=== PATIENT | female | born 1945 | race African-American/Black ===

== ENCOUNTER 2024-04-06 10:28 | Outpatient (REF) | payer OTHER, SELFPAY | END 2024-04-06 10:29 | disposition home or self-care (01) | LOC: HO.HOSX 10:28 | PROVIDERS: PCP Physician Assistant Medical | DX: M79.641 Pain in right hand (principal); M25.541 Pain in joints of right hand | CPT/HCPCS: 73130; 99202 ==

== ENCOUNTER 2024-04-06 10:28 | Outpatient (AMB) | payer OTHER, SELFPAY ==
--- NOTE | 2024-04-06 10:34 | A.OFFVIS_ITS ---
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 Patient states she has pain when moving her thumb. Pt states she also gets locking in her thumb. She has had injections many years ago and states the pain just started coming back. 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 of the IP joint of the right thumb, ongoing for approximately 2 months. The patient states that she did have basal joint injections into the right thumb years ago, and that this was very effective in relieving her pain, but she states that her pain now is different than it was before. The patient states that when she flexes the IP joint of the right thumb, it clicks, and then she needs to manually bring it back into extension with the other hand. Patient denies any numbness or tingling right hand. No other acute complaints or concerns this time . Review of Systems Const All systems reviewed & are unremarkable except as noted in HPI and below Physical Exam Extrem Other: Patient is alert, oriented, and in no acute distress. Neuro: Normal sensation of the tips of all digits of the right hand at this time Vascular: Cap refill brisk Pain: Patient reports pain associated with clicking of the IP joint of the right thumb with flexion and extension No tenderness to palpation of the IP joint, MCP joint, basal joint, or elsewhere right thumb No tenderness to palpation of the A1 renae ROM: Patient is able to make closed fist and extend all digits of the right hand However, when the patient flexes the IP joint, it clicks and locks in a flexed position and must be manually released However, there is no palpable locking and catching at the A1 renae Skin: No lacerations or abrasions. General: No ecchymosis, erythema, or evidence of infection. Psych: Appears grossly normal Affect normal Attitude cooperative Results Reviewed Results Reviewed: X-rays obtained in the office today and independently reviewed by me, Braxton Solis PA-C, demonstrate old, well corticated fracture of the distal phalanx of the right thumb with significant articular surface involvement. No acute fracture or acute bony abnormality noted Assessment & Plan Assessment & Plan (1) Pain in thumb joint with movement of right hand: Code(s): M25.541 - Pain in joints of right hand Category: Medical Plan 1. Old fracture of right thumb with associated locking and catching of IP joint I educated the patient that it was likely not a trigger finger that is causing her locking and catching, but I suspect that she may have chronic instability in the IP joint of the right thumb and it was chronically subluxating which is causing his locking and catching Patient denies knowledge of any prior significant fracture or injury to the right thumb, but states that this is possible Patient states understanding of this Patient is informed that she should have a follow-up appointment with Dr. Johns to discuss if any further treatment options be indicated for this Patient was amenable to this plan Patient will follow-up in 3-[address] Johns for repeat assessment and discussion of treatment options at time, sooner with any acute concerns Orders: Orders XR hand RT min 3V Today M79.641 - Pain in right hand Coding Level of Care Code New Pt Level 3 (32760) Diagnoses Pain in thumb joint with movement of right hand M25.541
== END 2024-04-06 11:11 | disposition home or self-care (01) ==
PROVIDERS: PCP Physician Assistant Medical
DX: M25.541 Pain in joints of right hand (principal)
CPT/HCPCS: 99203

== ENCOUNTER 2024-06-07 10:33 | Outpatient (AMB) | payer OTHER, SELFPAY ==
--- NOTE | 2024-06-07 11:01 | MHC.OFFVIS ---
Intake Visit Reasons: OV- Right thumb IP instability Intake Note: Brianna is a 78 year old right hand dominant female who presents to the office today for right thumb IP joint pain. Patient last seen with Tarik Limon who wanted patient to be re-evaluated by Dr Johns. Patient reports she is having pain when bending her thumb at her IP joint. States it locks and is painful. Brace that was given (comfort Cool brace) is making her pain worse. Hx of DM. Allergies losartan Allergy (Intermediate, Verified 06/07/24 11:06) Rash HPI HPI OV- Right thumb IP instability: Details: The patient is a 79-year-old woman who complains of pain in the IP joint of her right thumb. She also has pain over the A1 renae of her right thumb. She reports having locking and catching at the IP joint that is painful and bothersome. Physical Exam Extrem Other: The patient was alert oriented and in no acute distress She is tender over the right thumb A1 renae It took significant encouragement to get her to actively flex and extend her thumb at the IP joint, and she would only do it to about 20 degrees, because she is worried about it locking painfully. She can make a fist with her other digits and bring them into extension without any problems. Cap refill brisk sensation intact Radiographs: Three views of her right hand from 04/06/2024 were reviewed by me in clinic today show no fracture or dislocation. Only very mild arthritic changes at the IP joint. No old fracture, but rather a prominent volar sesamoid at the IP joint. Office Procedures AMB Fracture Care Details: No fracture, injection Fracture Billing Code: Fracture Billing Code Assessment & Plan Assessment & Plan (1) Trigger finger of right thumb: Code(s): M65.311 - Trigger thumb, right thumb Category: Medical Plan Assessment and plan: 1. Right trigger thumb This is the most likely diagnosis given her tenderness to palpation at the A1 renae and history of locking and catching at the IP joint I educated her about this condition We discussed operative and non operative treatment options and I am recommending an injection. She would like to proceed with a steroid injection for her right trigger thumb Injection #1: The risks and benefits of a steroid injection including but not limited to risk of damage to blood vessels, nerves, tendons, infection, skin bleaching, failure to improve symptoms, increased pain, and possible need for further injections or other intervention were discussed with the patient and the patient wishes to proceed with the steroid injection. Once consent was obtained, I sterilely prepped the area over the A1 renae of the flexor tendon sheath of the right thumb. I then injected the flexor tendon sheath with a combination of 1 mL of dexamethasone (4mg/ml), and 1% lidocaine. The patient tolerated the procedure well with no complications. I saw definite locking and catching with active flexion and extension after the injection. This therefore is indeed a right trigger thumb If the patient continues to have locking and catching 4-6 weeks following this injection, they may call to schedule appointment to be seen for possible A1 renae release. Follow up p.r.n. Coding Level of Care Code Est Pt Level 4 (67673) Diagnoses Trigger finger of right thumb M65.311 CPT Codes Fracture Care - Fracture Billing Code: Fracture Billing Code ([id number])
== END 2024-06-07 11:45 | disposition home or self-care (01) ==
PROVIDERS: PCP Physician Assistant Medical; Visit Provider Orthopaedic Surgery
DX: M65.311 Trigger thumb, right thumb (principal)
CPT/HCPCS: 20550; 99214

== ENCOUNTER → 2024-06-07 10:33 | Outpatient (BNVA) | payer OTHER, SELFPAY | PROVIDERS: PCP Physician Assistant Medical; Visit Provider Orthopaedic Surgery | DX: M65.311 Trigger thumb, right thumb (principal) | CPT/HCPCS: 20550; 99212; J1100; J2003 ==

== ENCOUNTER 2024-08-10 11:32 | Outpatient (AMB) | payer OTHER, SELFPAY ==
--- NOTE | 2024-08-10 12:04 | A.OFFVIS_ITS ---
Vital Signs 08/10/24 12:08 Height 5 ft Weight 161 lb BMI 31.4 Intake Visit Reasons: OV- Right trigger thumb, s/p inj 06/07/24 Intake Note: Brianna 79 yr old female presents today s/p right thumb trigger injection form 06/07/24. States injection did not help and would like to discuss surgical intervention. Allergies losartan Allergy (Intermediate, Verified 08/10/24 12:07) Rash HPI HPI OV- Right trigger thumb, s/p inj 06/07/24: Details: Brianna is a 79 year old right hand dominant Diabetic woman who returns to discuss her right trigger thumb, S/P injection on 06/07/24. She says the injection did not help her and she continues to have painful locking & catching of her thumb. She is a Diabetic, she says her most recent HgA1c was below 8.0% She is supposed to see her Diabetes doctor on 08/18/24. [facility] Social History (Updated 08/10/24 @ 12:08 by CELINA Hawk) Current occupational status: unemployed and retired Current occupation: rt hand Review of Systems Const All systems reviewed & are unremarkable except as noted in HPI and below Physical Exam Vital Signs: BMI result Body Mass Index 31.4 Const General: no acute distress and alert Orientation/consciousness: patient oriented x3 Neuro General: patient oriented x3 Extrem Other: Evaluation of Right Upper Extremity: The patient is alert, oriented, and in no acute distress Neuro: Median, Ulnar, Radial nerves motor and sensory intact and sensation is normal to the tips of all digits Vascular: Cap refill brisk ROM: She can make a fist and extend all her digits She is hesitant to bend her thumb today in clinic due to painful locking, and refuses to flex it beyond 20 degrees Tender over the thumb A1 renae Psych Appearance: grossly normal Affect: normal affect Attitude: cooperative Assessment & Plan Assessment & Plan (1) Trigger finger of right thumb: Code(s): M65.311 - Trigger thumb, right thumb Category: Medical Plan Assessment and plan: 1. Right trigger thumb, S/P injection Date of injection: 06/07/24 I educated her about this condition I discussed operative and non-operative treatment options The patient would like to proceed with surgery The risks and benefits of operative treatment were discussed with the patient and the patient wishes to proceed with surgery. These risks include, but are not limited to risk of damage to blood vessels, nerves, tendons, infection, recurrence, incomplete relief of preoperative symptoms, persistent pain, possible need for further surgery and the risks associated with regional blocks and anesthesia. The plan is to take the patient to the operating room sometime in the next few weeks for the following procedures: 1. Right trigger thumb release, under local All of the preoperative paperwork including the consent was reviewed today. All the patient's questions were answered. The patient understands that they will be contacted by our production scheduler soon to schedule this procedure She denies blood thinners, asthma, heart, lung, kidney issues She is a Diabetic and says her most recent HgA1c was below 8.0% .They will need an updated HgA1c that is <8.1% in order to proceed with surgery, and they expressed understanding Scribed for Laura Johns MD by Derek Hester, outside medical sales representative, on 08/10/24 at 12:10 PM, EST. Coding Level of Care Code Est Pt Level 4 (36168) Diagnoses Trigger finger of right thumb M65.311
[2024-08-10 12:08] VITALS: BMI 31.4
--- OUTSIDE RECORDS SUMMARY | 2024-08-10 14:29 | XMS_ITS | Clinical Summary ---
Author Organization [facility] Address [address] [place] [phone] Phone Care Team Providers Care Mining Engineer Name Role Phone Merlene Huntley PA-C Primary Care Provider [phone] Allergies Active Allergy Reactions Criticality Noted Date Comments Dapagliflozin 08/12/2023 Rash, face swelling Medications insulin aspart (NovoLOG FLEXPEN) 100 UNIT/ML injection Active insulin degludec (Tresiba FlexTouch) 100 UNIT/ML injection Active atorvastatin (LIPITOR) 40 MG tablet Take 40 mg by mouth 1 (one) time each day Active Calcium Carb-Cholecalci ferol 600-10 MG-MCG tablet Take 1 tablet by mouth in the morning and 1 tablet in the evening. 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 Impression: Stable CKD: Avoid nephrotoxins. Continue losartan 50 mg nightly. Blood work ordered. Emphasis on goo BP control and sugar control. Hypertensive disorder 01/07/2013 Acute nontraumatic kidney injury 09/12/2008 Goiter 09/12/2008 Resolved Problems Problem Noted Date Diagnosed Date Resolved Date Multinodular goiter 12/10/2018 09/05/19 Overview (09/04/2020): Ct abdomen/pelvis 03/2018-heterogeneous left thyroid gland, not significantly changed from 09/10/2008, likely secondary to multinodular goiter. Nodule of lung 12/10/2018 09/04/2020 Overview (09/04/2020): Ct abdomen pelvis- 03/2018: lateral left lobe 3 mm nodule, if low risk for malignancy, no routine follow-up. If high risk, optional CT at 12 months. If unchanged, no further follow-up is needed per guidelines. Shoulder pain 03/20/2015 09/04/2020 Overview (09/04/2020): [facility] Diagnostic Imaging Department [address] [place] [address] Patient: KAVITHABRIANNA /Age/Sex: 1945 - 69 - F Unit#: [id number] Location/Status: SPDIGEN/REG CLI Mnemonic/Ordering Site: SHOULDRT/SPDI Ordering Physician: HILDA SIMPSON MD CR Shoulder RT Min 2 View - 03/21/151946 HISTORY: The patient is a 69-year-old female with right shoulder pain 2 months following a fall. FINDINGS: AP, right posterior oblique, and transscapular views of the right shoulder demonstrate no fracture, dislocation, arthritic change, or other bony abnormality. No soft tissue abnormality is seen. IMPRESSION: Normal examination. Retinopathy due to type 2 diabetes mellitus 01/07/2013 09/04/2020 H/O: hysterectomy 01/07/2013 09/04/2020 Overview (09/04/2020): Per chart review, patient does not have a uterus or ovaries. History of esophagitis 01/07/201309/04 Hyperlipidemia 01/07/2013 09/04/2020 Leiomyoma 01/07/2013 09/04/2020 Type 2 diabetes mellitus 01/07/2013 Encounters Date Type Department Care Team Description 07/07/2024 1:00 PM EST [facility] [address] [phone] Kuldeep Rey MD Stage 3 chronic kidney disease, not otherwise specified (HCC) (Primary Dx); Hypertension; Simple renal cyst from Last 3 Months Immunizations Name Administration Dates Next Due Influenza TIV (IM) 04/25/2011 Pneumococcal Conjugate 13-Valent 12/10/2018 Pneumococcal Polysaccharide 01/16/2016 Shingrix 04/04/2021,07/03/2020 Tdap 01/16/2016 Zoster 07/03/2020 Family History Medical History Relation Comments Kidney disease Child Cancer Mother Hypertension Mother Diabetes Sibling 1 Stroke Sibling 2 Hypertension Sibling 3 Relation Status Comments Child Father Mother Sibling 1 Sibling 2 Sibling 3 Social History Tobacco Use Types Packs/Day Years Used Date Smoking Tobacco: Never Smokeless Tobacco: Never Tobacco Cessation:Counseling Given: Not Answered Alcohol Use Standard Drinks/Week Comments No 0 (1 standard drink = 0.6 oz pur e alcohol) Comments Unknown Sex and Gender Information Value Date Recorded Sex Assigned at Not on file Legal Sex Female 5:06 PM EST Gender Identity Not on file Sexual Orientation Not on file Last Filed Vital Signs Vital Sign Reading Time Taken Comments Blood Pressure 152/60 07/07/2024 1:13 PM EST Pulse 58 07/07/2024 1:13 PM EST Temperature - - Respiratory Rate - - Oxygen Saturation 100% 08/12/2023 7:43 AM EST Inhaled Oxygen Concentration - - Weight 74.4 kg (164 lb) 07/07/2024 1:13 PM EST Height 157.5 cm (5' 2 ) 08/12/2023 7:43 AM EST Body Mass Index 30 08/12/2023 7:43 AM EST Plan of Treatment Upcoming Encounters Date Type Department Care Team (Late st Contact Info) Description 01/16/2025 1:15 PM EDT Office Visit [facility] [address] [phone] Kuldeep Rye MD [address] [address] Health Maintenance Due Date Last Done Comments Diabetes: Ophthalmology Exam 07/12/2020 Diabetes: Pedal Pulse Checked 07/12/2020 Diabetes: Sensory Foot Exam 07/12/2020 Diabetes: Visual Foot Exam 07/12/2020 Influenza Vaccine (#1) 2024 04/25/2011 Diabetes: Hemoglobin A1C 06/16/2024 024, 12/08/2023, 07/22/2023, Additional history exists Pneumococcal Vaccine: 65+ Years Completed 12/10/2018, 01/16/2016 Hepatitis B Vaccine Aged Out No longe r eligible based on patient's age to complete this topic Procedures Procedure Name Priority Date/Time Associated Diagnosis Comments PTH, INTACT Routine 06/28/2024 10:35 AM EST VITAMIN D 25 HYDROXY Routine 06/28/2024 10:35 AM EST URINE ALBUMIN / CREATININE RATIO Routine 06/28/2024 10:35 AM EST RENAL FUNCTION PANEL Routine 06/28/2024 10:35 AM EST from Last 3 Months Results * (ABNORMAL) Urine Albumin / Creatinine Ratio (06/28/2024 10:35 AM EST) Creatinine, Ur 91.6 Not Estab. mg/dL [facility] Albumin, Urine 47.5 Not Estab. ug/mL [facility] Albumin/Creatin ine Ratio 52(H) 0 - 29 mg/g creat [facility] Comment: ? Normal: ?0 - ??29 ? Moderately increased: 30 - 300 ? Severely increased: ? >300 06/28/2024 10:3 5 AM EST 06/28/2024 us Kuldeep Rey MD LAB URINE ORDERABLES Final Resul t [facility] [address] [place] [address] * (ABNORMAL) Vitamin D 25 Hydroxy (06/28/2024 10:35 AM EST) Vitamin D, 25-OH, Total 24.5(L) 30.0 - 100.0 ng/mL [facility] Comment: Vitamin D deficiency has been defined by the [place] of Medicine and an Endocrine Society practice guideline as a level of serum 25-OH vitamin D less than 20 ng/mL (1,2). The Endocrine Society went on to further define vitamin D insufficiency as a level between 21 and 29 ng/mL (2). 1. IOM ([place] of [employer]). 2010. Dietary reference ?? intakes for calcium and D. [place]: The ?? National AcademCollegeJobConnect Press. 2. Hipolito LAND, Tomas JOHNSON, Kim-Anupam NAVARRETE, et al. ?? Evaluation, treatment, and prevention of vitamin D ?? deficiency: an Endocrine Society clinical practice ?? guideline. JCEM. 2010; 96(7):1911-30. 06/28/2024 10:3 5 AM EST 06/28/2024 us Kuldeep Rey MD LAB BLOOD ORDERABLES Final Resul t Performing Organization Address City/[facility]/ZIP Co de Phone Number [facility] [address] [place] [phone] * PTH, Intact (06/28/2024 10:35 AM EST) PTH 64 15 - 65 pg/mL [facility] 06/28/2024 10:3 5 AM EST 06/28/2024 us Kuldeep Rey MD LAB BLOOD ORDERABLES Final Resul t Performing Organization Address City/[facility] [[email or web address]] Co de Phone Number [facility] [address] [place] [address] * (ABNORMAL) Renal Function Panel (06/28/2024 10:35 AM EST) Glucose 135(H) 70 - 99 mg/dL [facility] BUN 26 8 - 27 mg/dL [facility] Creatinine 1.55(H) 0.57 - 1.00 mg/dL [facility] eGFR CKD-EPI CR 2020 34(L) >59 mL/min/1.7 3 [facility] BUN/Creatinine Ratio 17 12 - 28 [facility] Sodium 138 134 - 144 mmol/L [facility] Potassium 5.2 3.5 - 5.2 mmol/L [facility] Chloride 104 96 - 106 mmol/L [facility] Bicarbonate (CO2) 21 20 - 29 mmol/L [facility] Calcium 9.4 8.7 - 10.3 mg/dL [facility] Albumin 3.9 3.8 - 4.8 g/dL [facility] Phosphorus 3.5 3.0 - 4.3 mg/dL [facility] 06/28/2024 10:3 5 AM EST 06/28/2024 Kuldeep Rey MD LAB BLOOD ORDERABLES Final Resul t [facility] [address] [place] [address] from Last 3 Months Insurance * Guarantor: Brianna Chapman Account Type Relation to Patient Date of Phone Billing Address Personal/Family Self [address] ([id number]) [place] [phone] [facility] ([id number]) [place] [phone] Care Teams Mining Engineer Relationship Specialty Start Date End Date Merlene Huntley PA-C [address] [place] [address] PCP - General Physician Senior Internal Auditor 04/08/21
--- OUTSIDE RECORDS SUMMARY | 2024-08-10 14:29 | XMS_ITS | Clinical Summary ---
Author Organization [facility] Address [address] [place] [address] Care Team Providers Care Pest Technician Name Role Phone Merlene Huntley PA-C Primary Care Provider [phone] Source Comments PLEASE NOTE, if this patient is a minor, it may be UNLAWFUL to discuss sensitive information that is contained in these records (such as FAMILY PLANNING, MENTAL HEALTH or SUBSTANCE ABUSE) with the minor patient's parent or other person without the patient's specific authorization.[facility] Allergies Active Allergy Reactions Criticality Noted Date Comments Dapagliflozin 08/12/2023 Rash, face swelling Metformin Other (See Comments) 03/16/2024 eGFR 37 mL/min/1.73m2 as of 07/22/23 Medications lancets (FREESTYLE LANCETS) 28 gauge Test blood sugars TID w/meals DX: E11.65 FREESTYLE LANCETS 100 Each 11 02/24/20 18 Active acetaminophen (TYLENOL) 500 mg tablet Take 1 Tablet by mouth Active blood pressure test kit-mediumIndicati ons:Essential hypertension DX: htn FROYLAN: 99 1 Kit 10/30/19 23 Active MISCELLANEOUS MEDICAL SUPPLY MISCIndications:Co ntrolled type 2 diabetes mellitus without complication, with long-term current use of insulin ([facility]),[facility] hypertension by miscellaneous route once daily as needed Use as needed to monitor weight DX: DM II, HTN FROYLAN:99 Supply: scale 1 Each 10/30/19 23 Active flash glucose scanning reader (WorldVizSTYLE THEODORE 2 READER) [facility] Use to scan sensor to monitor blood sugar frequently (at least 4 times daily) 1 Each 04/08/20 23 Active blood sugar diagnostic (FREESTYLE PRECISION ANDRE STRIPS) stripsIndications: Type 2 diabetes mellitus with hyperglycemia, with long-term current use of insulin ([facility]) as needed for high blood sugar (Use with Theodore when prompted for hyperglycemia or hypoglycemia up to 2 times daily (FS Precision Andre Strips)) 50 Each 11 12/02/19 24 Active NOVOLOG FLEXPEN U-100 INSULIN 100 unit/mL (3 mL)Indications: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, macular edema presence unspecified, unspecified retinopathy severity ([facility]) INJECT UNDER THE SKIN DIRECTED 2-14 UNITS THREE TIMES DAILY WITH MEALS; MAX 42U/DAY 15 mL 03/09/20 24 Active glucose 4 gram chewable tabletIndications: Type 2 diabetes mellitus with stage 3b chronic kidney disease, with long-term current use of insulin ([facility]) Place 4 Tablets into mouth, chew and swallow as needed for low blood sugar (Less than 70 mg/dL) 30 Tablet 5 03/16/20 24 Active flash glucose sensor (FREESTYLE THEODORE 2 SENSOR) kitIndications:Typ e 2 diabetes mellitus with stage 3b chronic kidney disease, with long-term current use of insulin ([facility]) Combine applicator and sensor to apply to back of arm. Replace after 14 days. 2 Kit 03/16/20 24 Active insulin degludec (TRESIBA FLEXTOUCH U-100) 100 unit/mL (3 mL)Indications:Typ e 2 diabetes mellitus with stage 3b chronic kidney disease, with long-term current use of insulin ([facility]) Inject 12 Units into the skin nightly at bedtime 15 mL 04/14/20 24 Active losartan (COZAAR) 100 mg tabletIndications: Type 2 diabetes mellitus with stage 3b chronic kidney disease, with long-term current use of insulin ([facility]),[facility] l hypertension Take 1 Tablet by mouth every morning For blood pressure. 90 Tablet 1 04/14/20 24 Active pen needle, diabetic (BD ULTRA-FINE SHORT PEN NEEDLE) 31 gauge x 10/28 ndleIndications:Ty pe 2 diabetes mellitus with stage 3b chronic kidney disease, with long-term current use of insulin ([facility]) Use to inject insulin up to 4 times daily. 200 Each 05/16/20 24 Active atorvastatin (LIPITOR) 40 mg tabletIndications: Type 2 diabetes mellitus with stage 3b chronic kidney disease, with long-term current use of insulin ([facility]),[facility] l hypertension,Hyper lipidemia with target low density lipoprotein (LDL) cholesterol less than 100 mg/dL Take 1 Tablet by mouth once daily 90 Tablet 1 06/03/20 24 Active calcium carbonate-vit D3-min 600 mg-10 mcg (400 unit) tabletIndications: Medication refill,Brittle nails Take 1 Tablet by mouth 2 (two) times daily 180 Tablet 1 06/03/20 24 Active Active Problems Problem Noted Date Diagnosed Date Trachyonychia 07/22/2023 Hyperkalemia 02/13/2022 Non-cardiac chest pain 10/22/2021 Mammogram declined 12/10/2018 Multinodular goiter 12/10/2018 Overview (12/10/2018): Ct abdomen/pelvis 03/2018-heterogeneous left thyroid gland, not significantly changed from 09/10/2008, likely secondary to multinodular goiter. Lung nodule < 6cm on CT 12/10/2018 Overview (12/10/2018): Ct abdomen pelvis- 03/2018: lateral left lobe 3 mm nodule, if low risk for malignancy, no routine follow-up. If high risk, optional CT at 12 months. If unchanged, no further follow-up is needed per guidelines. H/O: hysterectomy 05/30/2015 Overview (05/30/2015): Per chart review, patient does not have a uterus or ovaries. Shoulder pain, right 03/20/2015 Overview (03/29/2015): [facility] Diagnostic Imaging Department [address] [place] [id number] Patient: FRANK CHAPMAN./Age/Sex: 1945 - 69 - F Unit#: [id number] Location/Status: SPDIGEN/REG CLI Mnemonic/Ordering Site: [facility] Ordering [...] tissue abnormality is seen. IMPRESSION: Normal examination. Diabetic retinopathy associa jeremie with type 2 diabetes mellitus ([facility]) 01/07/2013 Type 2 diabetes mellitus wit h stage 3b chronic kidney disease, with long-term current use of insulin ([facility]) 01/07/2013 Overview (06/30/2024): DM dx: >40years Glucometer: Freestyle Theodore 2 Current Diabetes RX: Tresiba U-100 - inject 12 units at bedtime Novolog Flexpen - inject 2-14 units three times daily before meals (max 42 units/day) Dapagliflozin - allergy list, counseled pt to consult nephrology regarding SLGT- 2 inhibitor use ARABELLA-I/ARB: Losartan 100 mg daily Statin: Atorvastatin 40 mg daily Pneumococcal vaccine: Based on shared clinical decision-making, decide whether to administer one dose of PCV20 or PCV21 at least 5 years after the last pneumococcal vaccine dose. Regardless of wheter PCV20 or PCV21 is administered, their pneumococcal vaccinations are complete. Received: PCV13 (12/10/18) PPSV23 (01/16/16) Diabetes foot exam: 12/08/23 per Diabetes retinal exam: 09/23/23 at [facility] Bilateral pinguecula Nuclear sclerotic cataract. Pt does not drive and does not want cataract surgery . No diabetic retinopathy, no macular edema, no HTN retinopathy. Hyperopia. Astigmatism. Presbyopia F/U 1 year. Hyperlipidemia LDL goal <100 01/07/2013 H/O esophagitis 01/07/2013 Chronic kidney disease, stage 3 ([facility]) 2012 Overview (04/03/2015): Pt seen Dr Lara on 03/20/2015 at [facility]. Impression: Stable CKD: Avoid nephrotoxins. Continue losartan 50 mg nightly. Blood work ordered. Emphasis on goo BP control and sugar control. S/P hysterectomy 01/07/2013 Fibroids 01/07/2013 Stage 3b chronic kidney disease ([facility]) 2012 Overview (06/30/2024): Follow-up 07/07/24 at [facility] - Dr. Kuldeep Rey 01/04/24 [facility] - Dr. Kuldeep Rey 1. Stage 3b chronic kidney disease (HCC) 2. Hypertension 3. Simple renal cyst Kidney function is close to baseline. Baseline Scr is ~ 1.4 mg/dl Renal US on 05/30 was normal except for a left simple renal cyst. (R 9.8 cm and L 9.6 cm). 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 She is on losartan. She has a simple renal cyst and no further work up is indicated. She would benefit from SGTL2i but did not tolerate it previously. Essential hypertension 01/07/2013 Goiter 09/12/2008 Acute renal failure ([facility]) 09/12/2008 Resolved Problems Problem Noted Date Diagnosed Date Resolved Date Uses self-applied continuous glucose monitoring device 04/21/2023 03/16/2024 End stage renal disease ([facility]) 09/04/2020 03/16/2024 HTN (hypertension) 01/07/2013 Encounters Date Type Department Care Team Description 08/09/2024 10:00 AM EST Office Visit [address] [phone] Mariela Lucas RN Type 2 diabetes mellitus with stage 3b chronic kidney disease, with long-term current use of insulin (HCC-CMS) (Primary Dx) 06/30/2024 2:00 PM EST Office Visit [address] [phone] Hammad Camarillo, Michael Type 2 diabetes mellitus with stage 3b chronic kidney disease, with long-term current use of insulin (HCC-CMS) (Primary Dx); Essential hypertension; Hyperlipidemia LDL goal <100; Stage 3b chronic kidney disease ([facility]CC-CMS) 06/30/2024 Travel 06/03/2024 10:00 AM EST Office Visit [address] [phone] Merlene Huntley PA-C Annual physical exam (Primary Dx); Type 2 diabetes mellitus with stage 3b chronic kidney disease, with long-term current use of insulin (HCC-CMS); Essential hypertension; Hyperlipidemia with target low density lipoprotein (LDL) cholesterol less than 100 mg/dL; Medication refill; Brittle nails 06/03/2024 9:30 AM EST Interim Notes [facility] [address] [place] [phone] 06/03/2024 Travel 05/31/2024 11:20 AM EST Interim Notes [facility] [address] [place] [phone] 05/31/2024 10:40 AM EST Office Visit [address] [phone] Mariela Lucas RN Type 2 diabetes mellitus with stage 3b chronic kidney disease, with long-term current use of insulin (HCC-CMS) (Primary Dx) 05/31/2024 Travel from Last 3 Months Immunizations Name Administration Dates Next Due INFLUENZA, SEASONAL, INJECTABLE 04/25/2011,04/25 PNEUMOCOCCAL CONJUGATE PCV 13 12/10/2018 PNEUMOCOCCAL POLYSACCHARIDE PPV23 01/16/2016 TDAP 01/16/2016 ZOSTER VACCINE, RECOMBINANT (SHINGRIX) 1 ,04/04/2021,07/03/2020,07/03 Social History Tobacco Use Types Packs/Day Years Used Date Smoking Tobacco: Never Smokeless Tobacco: Never Tobacco Cessation:Counseling Given: Not Answered Alcohol Use Standard Drinks/Week Comments Never 0 (1 standard drink = 0.6 oz pur e alcohol) Social Connections Answer Date Recorded Connectedness 1 06/03/2024 Financial Resource Strain Answer Date R ecorded Financial Resource Strain 1 2023 Stress Answer Date Recorded Stress 1 06/03/2024 Physical Activity Answer Date Recorded Physical Activity 0 10/02/2020 Food Insecurity Answer Date Recorded Food 1 06/03/2024 Transportation Needs Answer Date Record ed Transportation 1 06/03/2024 Housing Stability Answer Date Recorded Housing 1 06/03/2024 Safety and Environment Answer Date Ruben rded Safety 0 04/29/2023 Utilities Answer Date Recorded Utilities 1 06/03/2024 Employment Answer Date Recorded Stress 0 04/29/2023 Comments No Sex and Gender Information Value Date Recorded Sex Assigned at Female 04/16/2017 10:02 AM PDT Legal Sex Female 11:36 AM PDT Gender Identity Female 04/16/2017 10:02 AM PDT Sexual Orientation Straight 04/16/2017 10 :02 AM PDT Last Filed Vital Signs Vital Sign Reading Time Taken Comments Blood Pressure 140/70 08/09/2024 10:33 AM EST Pulse 64 08/09/2024 10:33 AM EST Temperature 36.6 ??C (97.9 ??F) 06/03/2024 9:54 AM ES T Respiratory Rate 18 06/30/2024 2:02 PM EST Oxygen Saturation 99% 06/30/2024 2:02 PM EST Inhaled Oxygen Concentration - - Weight 73.2 kg (161 lb 6.4 oz) 08/09/2024 10:33 AM EST Height 157.5 cm (5' 2 ) 06/30/2024 2:02 PM EST Body Mass Index 29.52 06/30/2024 2:02 PM EST Plan of Treatment Upcoming Encounters Date Type Department Care Team (Late st Contact Info) Description 08/18/2024 9:10 AM EST Interim Notes [facility] [address] [place] [phone] 08/18/2024 9:40 AM EST [facility] Visit [facility] [address] [place] [address] Hammad Camarillo, Michael [address] [place] [address] 08/18/2024 10:20 AM EST Interim Notes [facility] [address] [place] [address] 08/29/2024 8:00 AM EDT Interim Notes [facility] [address] [place] [phone] 08/29/2024 9:00 AM EDT Office Visit [facility] [address] [place] [address] Robert Doss [facility] [address] [place] [address] 08/29/2024 10:00 AM EDT Interim Notes [facility] [address] [place] [phone] 10/11/2024 10:10 AM EDT Interim Notes [facility] [address] [place] [phone] 10/11/2024 10:40 AM EDT Office Visit [facility] [address] [place] [address] Mariela Lucas RN [address] [place] [address] 10/11/2024 11:10 AM EDT Interim Notes [facility] [address] [place] [phone] Health Maintenance Due Date Last Done Comments Depression Annual Screen 06/15/2024 06/03/2024, 02/0 12/2023 Diabetes HbA1c 06/16/2024 03/16/2024, 06/2 10/2023, 07/22/2023, Additional history exists Dental Prophy 06/19/2024 12/16/2023, 12/30/2021 [id number] ( season) 2024 Postponed from 02/14/2024 (Patient postponement) Retinopathy Screening 09/22/2024 09/23/2023 , 09/17/2022, 09/13/2021, Additional history exists Diabetes Foot Exam 12/07/2024 12/08/2023, 0 12/08/2023, 04/04/2021, Additional history exists Falls Prevention 12/07/2024 12/08/2023, , 08/02/2019 Imm-Influenza (#1) 2024 04/25/2011, 04/25/2011 Postponed from 02/14/2024 (Patient postponement) Dental BW 12/17/2024 12/16/2023, 12/30/2021 Dental Examination 12/17/2024 12/16/2023, 12/30/2021 Dental Perio Charting 12/17/2024 12/16/2023, 022 Diabetes Microalbumin (w/Creatinine) 03/16/2025 03/16/2024, 05/14/2022, 04/11/2021, Additional history exists Lipid Screening 03/16/2025 03/16/2024, 02/0 12/2023, 05/04/2023, Additional history exists Tobacco Screening 03/16/2025 03/16/2024, 04/29/2023 Bone Density Screening 05/15/2025 05/15/2023, 2022 Medicare Annual Wellness Visit 06/03/2025 06/03/2024, 04/29/2023, 10/09/2021, Additional history exists Serum Creatinine 06/28/2025 06/28/2024, 07/2023, 12/24/2023, Additional history exists Imm-DTaP/Tdap/Td (2 - Td or Tdap) 01/15/2026 01/16/2016 Dental FMX/Pano 01/01/2027 12/30/2021 Imm-Pneumococcal 65+ Completed 12/10/2018, 01/16/20 Hepatitis C Screening Completed 07/03/2020 Imm-Zoster, Recombinant Completed 04/04/20, 04/04/2021, 07/03/2020, Additional history exists Alcohol and Drug Screen Completed 06/30/19, 06/03/2024, 03/09/2024, Additional history exists Goals Goal Patient Goal Type Associated Problems Recent Progress Patient-Stated? Author Blood Pressure < 130/80 Blood Pressure HTN (hypertension) 140/70(2024 10:33 AM EST) No Fany Hilton PharmD monitor bp 2 x daily using smbp device General Not on track( 024 1:18 PM PDT) Yes Renetta Sierra RN Hypertension: Decrease sodium intake General Improving(06/2023 10:03 AM PST) No Renetta Sierra RN HEMOGLOBIN A1C < 7.0 Result Component Type 2 diabetes mellitus with stage 3b chronic kidney disease, with long-term current use of insulin ([facility]) 8.2( 2:56 PM EDT) No Fany Hilton PharmD Procedures Procedure Name Priority Date/Time Associated Diagnosis Comments GLUCOSE, BLOOD BY GLUCOSE MONITORING DEVICE (CLIA WAIVED)POCT Routine 06/30/2024 2:13 PM EST Type 2 diabetes mellitus with stage 3b chronic kidney disease, with long-term current use of insulin ([facility]) REFERRAL SCANNED DOCUMENT 06/07/2024 3:00 AM EST MICROALBUMIN/CREATINI NE RATIO, URINE, RANDOM Routine 03/16/2024 3:20 PM EDT Type 2 diabetes mellitus with stage 3b chronic kidney disease, with long-term current use of insulin ([facility]) COMPREHENSIVE METABOLIC PANEL Routine 03/16/2024 2:56 PM EDT Type 2 diabetes mellitus with stage 3 chronic kidney disease, with long-term current use of insulin, unspecified whether stage 3a or 3b CKD ([facility]) Primary hypertension Hyperlipidemia with target low density lipoprotein (LDL) cholesterol less than 100 mg/dL LIPID PANEL Routine 03/16/2024 2:56 PM EDT Type 2 diabetes mellitus with stage 3 chronic kidney disease, with long-term current use of insulin, unspecified whether stage 3a or 3b CKD ([facility]) Primary hypertension Hyperlipidemia with target low density lipoprotein (LDL) cholesterol less than 100 mg/dL HEMOGLOBIN GLYCOSYLATED A1C Routine 03/16/2024 2:56 PM EDT Type 2 diabetes mellitus with stage 3 chronic kidney disease, with long-term current use of insulin, unspecified whether stage 3a or 3b CKD ([facility]) COMP PERIODONTAL EVALUATION - NEW/EST PATIENT Routine 12/16/2023 1:40 PM EDT Encounter for dental examination BITEWINGS - FOUR RADIOGRAPHIC IMAGES Routine 12/16/2023 1:40 PM EDT Encounter for dental examination PROPHYLAXIS - ADULT Routine 12/16/2023 1 :40 PM EDT Encounter for dental examination PERIODIC ORAL EVALUATION ESTABLISHED PATIENT Routine 12/16/2023 1:40 PM EDT Encounter for dental examination EYE EXAM 09/23/2023 3:00 AM EDT HISTORIC DEXA SCAN 05/15/2023 3: 00 AM EST INTRAORAL - COMP SERIES OF RADIOGRAPHIC IMAGES Routine 12/30/2021 9:00 AM EDT Dental caries noted on examination HEPATITIS C ANTIBODY Routine 07/03/2020 11:05 AM EST Need for hepatitis C screening test from Last 3 Months or Most Recently Relevant to Health Maintenance Results * (ABNORMAL) GLUCOSE, BLOOD BY GLUCOSE MONITORING DEVICE (CLIA WAIVED)POCT (06/30/2024 2:13 PM EST) GLUCOSE 111(A) 70 - 100 mg/dL [facility] POCT Capillary Blood Blood / Unknown 2:13 PM EST Hammad TrotterD LAB - BLOOD DRAW Final Re sult [facility] POCT * REFERRAL SCANNED DOCUMENT (06/07/2024 3:00 AM EST) 06/07/2024 3:00 AM EST Merlene Huntley PA-C SCAN REFERRAL Final Result * MICROALBUMIN/CREATININE RATIO, URINE, RANDOM (03/16/2024 3:20 PM EDT) CREATININE, RANDOM URINE 103 20 - 275 mg/dL [facility] MICROALBUMIN 2.8 mg/dL [facility] Comment: Reference Range Not established MICROALBUMIN/CREA TININE RATIO, RANDOM URINE 27 <30 mg/g creat [facility] Comment: The ADA defines abnormalities in albumin excretion as follows: Albuminuria Category ?Result (mg/g creatinine) Normal to Mildly increased ?? <30 Moderately increased ? 30-299 Severely increased ? > OR = 300 The ADA recommends that at least two of three specimens collected within a 3-6 month period be abnormal before considering a patient to be within a diagnostic category. Urine Urine specimen / Unknown 03/16/2024 3:20 PM EDT 03/16/2024 3:21 PM EDT Hammad TrotterD LAB - NO BLOOD DRAW Final Result Performing Organization Address [facility] Co de Phone Number [facility] [address] [place] [phone], [facility] [address] [place] [phone] * (ABNORMAL) HEMOGLOBIN GLYCOSYLATED A1C (03/16/2024 2:56 PM EDT) HEMOGLOBIN A1C 8.2(H) <5.7 % of total Hgb [facility] Comment: For someone without known diabetes, a hemoglobin A1c value of 6.5% or greater indicates that they may have diabetes and this should be confirmed with a follow-up test. For someone with known diabetes, a value <7% indicates that their diabetes is well controlled and a value greater than or equal to 7% indicates suboptimal control. A1c targets should be individualized based on duration of diabetes, age, comorbid conditions, and other considerations. Currently, no consensus exists regarding use of hemoglobin A1c for diagnosis of diabetes for children. ?? Blood Blood / Unknown 03/16/2024 2 :56 PM EDT 03/16/2024 2:57 PM EDT Narrative [facility] - 03/17/2024 6:08 AM EDT FASTING:NO Merlene Huntley PA-C LAB - BLOOD DRAW Final Resul t [facility] [address] [address], [facility] [address] [address] * (ABNORMAL) LIPID PANEL (03/16/2024 2:56 PM EDT) [facility] Signature CHOLESTEROL, TOTAL 171 <200 mg/dL [facility] HDL CHOLESTEROL 48(L) > OR = 50 mg/dL [facility] TRIGLYCERIDES 74 <150 mg/dL [facility] LDL-CHOLESTEROL 107(H) 99 mg/dL (calc) [facility] Comment: Reference range: <100 Desirable range <100 mg/dL for primary prevention; ?? <70 mg/dL for patients with CHD or diabetic patients with > or = 2 CHD risk factors. LDL-C is now calculated using the Erlin calculation, which is a validated novel method providing better accuracy than the Friedewald equation in the estimation of LDL-C. Fransico SS et al. LINA. 2013;310(19): 0423-2828 (http://education.[employer]/faq/CQP491) CHOL/HDLC RATIO 3.6 <5.0 (calc) [facility] NON-HDL CHOLESTEROL 123 <130 mg/dL (calc) [employer] [facility] Comment: For patients with diabetes plus 1 major ASCVD risk factor, treating to a non-HDL-C goal of <100 mg/dL (LDL-C of <70 mg/dL) is considered a therapeutic option. Blood Blood / Unknown 03/16/2024 2 :56 PM EDT 03/16/2024 2:57 PM EDT Narrative Circle [facility] - 03/17/2024 6:08 AM EDT FASTING:NO us Merlene Huntley PA-C LAB - BLOOD DRAW Final Resul t Performing Organization Address City/[facility]/ZIP Co de Phone Number Circle [facility] [address] [address], [facility] [address] [phone] * (ABNORMAL) COMPREHENSIVE METABOLIC PANEL (03/16/2024 2:56 PM EDT) GLUCOSE 108 65 - 139 mg/dL [facility] Comment: ?Non-fasting reference interval UREA NITROGEN (BUN) 34(H) 7 - 25 mg/dL [facility] CREATININE (blood) 1.47(H) 0.60 - 1.00 mg/dL [facility] EGFR 37(L) > OR = 60 mL/min/1. 73m2 [facility] BUN/CREATININE RATIO 23(H) 6 - 22 (calc) [facility] SODIUM 136 135 - 146 mmol/L [facility] POTASSIUM 4.9 3.5 - 5.3 mmol/L [facility] CHLORIDE 102 98 - 110 mmol/L [facility] CARBON DIOXIDE 26 20 - 32 mmol/L [facility] CALCIUM 9.5 8.6 - 10.4 mg/dL [facility] PROTEIN, TOTAL 7.4 6.1 - 8.1 g/dL [facility] ALBUMIN 4.1 3.6 - 5.1 g/dL [facility] GLOBULIN 3.3 1.9 - 3.7 g/dL (calc) [facility] ALBUMIN/GLOBULI N RATIO 1.2 1.0 - 2.5 (calc) [facility] BILIRUBIN, TOTAL 0.4 0.2 - 1.2 mg/dL [facility] ALKALINE PHOSPHATASE 89 37 - 153 U/L [facility] AST 14 10 - 35 U/L [facility] ALT 7 6 - 29 U/L [facility] Blood Blood / Unknown 03/16/2024 2 :56 PM EDT 03/16/2024 2:57 PM EDT Narrative [facility] - 03/17/2024 6:08 AM EDT FASTING:NO us Merlene Huntley PA-C LAB - BLOOD DRAW Edited Resu lt - Final [facility] [address] [address], [facility] [address] [phone] * EYE EXAM (09/23/2023 3:00 AM EDT) 09/23/2023 3:00 AM EDT us Merlene Huntley PA-C OTHER Edited Resul t - Final * HISTORIC DEXA SCAN (05/15/2023 3:00 AM EST) 05/15/2023 3:00 AM EST us Merlene Huntley PA-C IMG DXA Edited Resul t - Final * HEPATITIS C ANTIBODY (07/03/2020 11:05 AM EST) HEPATITIS C VIRUS SCREEN NEGATIVE NEGATIVE [facility] Blood Blood / Unknown 07/03/2020 1 1:05 AM EST 07/03/2020 11:27 AM EST Narrative [facility] - 07/03/2020 2:07 PM EST [employer] a [place] [address] House Repairer [place] [id number] ORD# [id number] Merlene Huntley PA-C LAB - [place] [address], from Last 3 Months or Most Recently Relevant to Health Maintenance Insurance [facility] Member Subscriber Plan / Payer (Ef fective 2019-Present) Name:Frank Chapman Relation to Subscriber:Self Name:Frank Chapman Payer ID:[id number] Group ID:Not on file Type:Medicare Address: [address] [employer] Member Subscriber Plan / Payer (Ef fective 2013-Present) Name:Frank Chapman Relation to Subscriber:Self Name:Frank Chapman Payer ID:[id number] Group ID:Not on file Type:Geneemnijosiah Address: [facility] [address] [address] Care Teams Pest Technician Relationship Specialty Start Date End Date Merlene Huntley PA-C [address] [place] [address] PCP - General FAMILY MEDICINESHERRIE 06/29/20
--- OUTSIDE RECORDS SUMMARY | 2024-08-10 14:31 | XMS_ITS | Encounter Summary ---
Author Organization [facility] Address [address] [place] [address] Care Team Providers Care Accounts Payable Coordinator Name Role Phone Merlene Huntley PA-C Primary Care Provider + [phone] Reason for Visit * Reason Comments Diabetes Mellitus Encounter Details Date Type Department Care Team (Late st Contact Info) Description 08/09/2024 10:00 AM EST Office Visit [facility] [address] [place] [phone] Mariela Lucas RN [address] [place], [place] [phone] Type 2 diabetes mellitus with stage 3b chronic kidney disease, with long-term current use of insulin ([facility]) (Primary Dx) Social History Tobacco Use Types Packs/Day Years Used Date Smoking Tobacco: Never Smokeless Tobacco: Never Alcohol Use Standard Drinks/Week Comments Never 0 [...] Orientation Straight 04/16/2017 10 :02 AM PDT documented as of this encounter Last Filed Vital Signs Vital Sign Reading Time Taken Comments Blood Pressure 140/70 08/09/2024 10:33 AM EST Pulse 64 08/09/2024 10:33 AM EST Temperature - - Respiratory Rate - - Oxygen Saturation - - Inhaled Oxygen Concentration - - Weight 73.2 kg (161 lb 6.4 oz) 08/09/2024 10:33 AM EST Height - - Body Mass Index 29.52 06/30/2024 2:02 PM EST documented in this encounter Progress Notes * Mariela Lucas RN - 08/09/2024 10:47 AM EST Brianna Chapman is a 79 year old, Macedonian-speaking female who presents today for an follow-up visit in [facility] with Mariela Lucas RN, [facility]. Referred by Merlene Huntley PA-C. No life underwriter needed for today's visit as patient speaks Macedonian. Accompanied by: Alone Subjective Patient reports: sister in [facility] New concerns: BG higher due to stress Diabetes Medications Current medications for diabetes: Insulins: Novolog TID and Tresiba Oral medications: N/A GLP-1 RA: N/A Diabetes [facility] Testing frequency: 3 per day Signs/Sx Hypo / Hyperglycemia? No Time In Range 7 Days 14 Days 30 Days Above 15% 22% 27% In range 85% 77% 73% Below 0% 1% 0% Time Active (Sensor usage) Average BG 142 148 155 Low BG 0 4 2 Diet (if did not complete, please put will address at follow-up appt ) Dates of Foot/Eye Exam & Urine Micro Date of Last Foot Exam: 12/08/2023 Date of Last Urine Micro: 03/16/2024 Date of Last Eye Exam: 09/23/2023 Date of Last Dental Exam: 12/16/2023 Objective Vitals: 08/09/24 1033 BP: (!) 140/70 BP Site: Left Arm BP Position: Sitting BP Cuff Size: Regular Adult Pulse: 64 Weight: 161 lb 6.4 oz (73.2 kg) BP Readings from Last 3 Encounters: 08/09/24 (!) 140/70 06/30/24 130/70 06/03/24 134/60 Wt Readings from Last 3 Encounters: 08/09/24 161 lb 6.4 oz (73.2 kg) 06/30/24 163 lb (73.9 kg) 06/03/24 163 lb 9.6 oz (74.2 kg) Lab Results Component Value Date HGBA1C 8.2 (H) 03/16/2024 HGBA1C 8.2 (H) 12/08/2023 HGBA1C 8.3 (H) 07/22/2023 Lab Results Component Value Date GLUCOSE 111 (A) 06/30/2024 GLUCOSE 131 (A) 04/14/2024 GLUCOSE 108 03/16/2024 Brianna has a current medication list which includes the following prescription(s): atorvastatin, calcium carbonate-vit d3-min, pen needle, diabetic, insulin degludec, losartan, freestyle theodore 2 sensor, glucose, novolog flexpen u-100 insulin, freestyle precision modesta strips, freestyle theodore 2 reader, blood pressure test kit-medium, miscellaneous medical supply, acetaminophen, and lancets. Assessment Diabetes: Need updated A1c, Controlled SMBG Plan Counseled for lifestyle modifications and for self-care behaviors for managing diabetes effectively. Reviewed CGM readings and discussed time in target. Patient states BG higher due to stress, of her sister. She will be traveling to [place] next month. To help control her BG she blends cucumbers, spinach and string beans and drinks it 2-3 times a day. Diabetes Mellitus: Type 2 diabetes mellitus with stage 3b chronic kidney disease, with long-term current use of insulin ([facility]) Follow up: 10/11/2024 documented in this encounter Miscellaneous Notes * Patient Instructions - Mariela Lucas RN - 08/09/2024 10:33 AM EST If you are not able to keep your appointment please call 24-48 hours before your appointment to cancel or reschedule. documented in this encounter Plan of Treatment Upcoming Encounters Date Type Department Care Team (Late st Contact Info) Description 08/18/2024 9:10 AM EST Interim Notes [facility] [address] [place] [phone] 08/18/2024 9:40 AM EST Office Visit [facility] [address] [place] [phone] Hammad Camarillo PharmD [address] [place] [address] 08/18/2024 10:20 AM EST Interim Notes [facility] [address] [place] [phone] 08/29/2024 8:00 AM EDT Interim Notes [facility] [address] [place] [phone] 08/29/2024 9:00 AM EDT Office Visit [facility] [address] [place] [phone] Robert Doss RHD [address] [place] [address] 08/29/2024 10:00 AM EDT Interim Notes [facility] [address] [place] [phone] 10/11/2024 10:10 AM EDT Interim Notes [facility] [address] [place] [phone] 10/11/2024 10:40 AM EDT Office Visit [facility] [address] [place] [phone] Mariela Lucas RN [address] [place] [address] 10/11/2024 11:10 AM EDT Interim Notes [facility] [address] [place] [phone] documented as of this encounter Goals Goal Patient Goal Type Associated Problems Recent Progress Patient-Stated? Author Blood Pressure < 130/80 Blood Pressure HTN (hypertension) 140/70(2024 10:33 AM EST) No Fany Hilton, PharmD monitor bp 2 x daily using smbp device General Not on track( 024 1:18 PM PDT) Yes Renetta Sierra RN Hypertension: Decrease sodium intake General Improving(06/2023 10:03 AM PST) No Renetta Sierra RN HEMOGLOBIN A1C < 7.0 Result Component Type 2 diabetes mellitus with stage 3b chronic kidney disease, with long-term current use of insulin ([facility]) 8.2( 2:56 PM EDT) No Fany Hilton, PharmD documented as of this encounter Visit Diagnoses Diagnosis Type 2 diabetes mellitus with stage 3b chronic kidney disease, with long-term current use of insulin ([facility] Primary documented in this encounter Additional Health Concerns Assessment Noted Time PHQ-9 Depression Total Score: 0 06/03/20 9:56 AM PST documented as of this encounter Care Teams Accounts Payable Coordinator Relationship Specialty Start Date End Date Merlene Huntley PA-C [address] [place] [address] PCP - General FAMILY MEDICINESHERRIE 06/29/20 documented as of this encounter
--- OUTSIDE RECORDS SUMMARY | 2024-08-10 14:31 | XMS_ITS ---
Author Organization [facility] Address [address] [place] [address] Care Team Providers Care Wetlands Conservation Laborer Name Role Phone Merlene Huntley PA-C Primary Care Provider [phone] [facility]BP Program Status:Enrolled (Active) Start date:01/01/2023 Enrollment date:01/01/2023 Case Team Name Relationship Phone Renetta Sierra RN (Responsible Staff) Continued Care and Services Coordination
== END 2024-08-10 12:20 | disposition home or self-care (01) ==
PROVIDERS: PCP Physician Assistant Medical; Visit Provider Orthopaedic Surgery
DX: M65.311 Trigger thumb, right thumb (principal)
CPT/HCPCS: 99214

== ENCOUNTER → 2024-08-10 11:32 | Outpatient (BNVA) | payer OTHER, SELFPAY | PROVIDERS: PCP Physician Assistant Medical; Visit Provider Orthopaedic Surgery | DX: M65.311 Trigger thumb, right thumb (principal) | CPT/HCPCS: 99212 ==

== ENCOUNTER 2024-10-04 06:21 | Day surgery (SDC) | payer OTHER, SELFPAY ==
--- OUTSIDE RECORDS SUMMARY | 2024-09-14 15:44 | XMS_ITS ---
Author Organization [facility] Address [address] [place] [address] Care Team Providers Care Thoracic Surgeon Name Role Phone Merlene Huntley PA-C Primary Care Provider [phone] [facility]BP Program Status:Enrolled (Active) Start date:01/01/2023 Enrollment date:01/01/2023 Case Team Name Relationship Phone Renetta Sierra RN (Responsible Staff) Continued Care and Services Coordination
--- OUTSIDE RECORDS SUMMARY | 2024-09-14 15:44 | XMS_ITS | Clinical Summary ---
Author Organization [facility] Address [address] [place] [phone] Phone Care Team Providers Care Urban And Regional Planner Name Role Phone Merlene Huntley PA-C Primary Care Provider Allergies Active Allergy Reactions Criticality Noted Date [...] guidelines. Shoulder pain 03/20/2015 09/04/2020 Overview (09/04/2020): [facility] Diagnostic Imaging Department [address] [place] [address] Patient: KAVITHABRIANNA /Age/Sex: 1945 - 69 - F Unit#: [id number] Location/Status: SPDIGEN/REG CLI Mnemonic/Ordering Site: SHOULDRT/SPDI Ordering [...] Office Visit [facility] [address] [phone] Kuldeep Rey MD Stage 3 [...] Office Visit [facility] [address] [phone] Kuldeep Rey MD [address] [phone] Health Maintenance Due Date Last [...] EST) Creatinine, Ur 91.6 Not Estab. mg/dL [facility] Albumin, Urine 47.5 Not Estab. ug/mL [facility] Albumin/Creatin ine Ratio 52(H) 0 - 29 mg/g creat [facility] Comment: ? Normal: ?0 - ??29 ? Moderately increased: 30 - 300 ? Severely increased: ? >300 06/28/2024 10:3 5 AM EST 06/28/2024 us Kuldeep Rey MD LAB URINE ORDERABLES Final Resul t [facility] [address] [place] [address] * (ABNORMAL) Vitamin D 25 Hydroxy (06/28/2024 10:35 AM EST) Vitamin D, 25-OH, Total 24.5(L) 30.0 - 100.0 ng/mL [facility] Comment: Vitamin D deficiency has been defined by the [place] of Medicine and an Endocrine Society practice guideline as a level of serum 25-OH vitamin D less than 20 ng/mL (1,2). The Endocrine Society went on to further define vitamin D insufficiency as a level between 21 and 29 ng/mL (2). 1. IOM ([place] of Medicine). 2010. Dietary reference ?? intakes for calcium and D. [place]: The ?? National [employer] Press. 2. Hipolito LAND, Tomas JOHNSON, Kim-Anupam NAVARRETE, et al. ?? Evaluation, treatment, and prevention of vitamin D ?? deficiency: an Endocrine Society clinical practice ?? guideline. JCEM. 2010; 96(7):1911-30. 06/28/2024 10:3 5 AM EST 06/28/2024 us Kuldeep Rey MD LAB BLOOD ORDERABLES Final Resul t Performing Organization Address City/[facility]/ZIP Co de Phone Number [facility] [address] [place] [address] * PTH, Intact (06/28/2024 10:35 AM EST) PTH 64 15 - 65 pg/mL [facility] 06/28/2024 10:3 5 AM EST 06/28/2024 us Kuldeep Rey MD LAB BLOOD ORDERABLES Final Resul t Performing Organization Address City/[facility]/[place]UST Co de Phone Number [facility] [address] [place] [phone] * (ABNORMAL) Renal Function Panel (06/28/2024 10:35 AM EST) Glucose 135(H) 70 - 99 mg/dL [facility] BUN 26 8 - 27 mg/dL [facility] Creatinine 1.55(H) 0.57 - 1.00 mg/dL [facility] eGFR CKD-EPI CR 2020 34(L) >59 mL/min/1.7 3 [facility] BUN/Creatinine Ratio 17 12 - 28 [facility] Sodium 138 134 - 144 mmol/L [facility] Potassium 5.2 3.5 - 5.2 mmol/L [facility] Chloride 104 96 - 106 mmol/L [facility] Bicarbonate (CO2) 21 20 - 29 mmol/L [facility] Calcium 9.4 8.7 - 10.3 mg/dL [facility] Albumin 3.9 3.8 - 4.8 g/dL [facility] Phosphorus 3.5 3.0 - 4.3 mg/dL [facility] 06/28/2024 10:3 5 AM EST 06/28/2024 Kuldeep Rey MD LAB BLOOD ORDERABLES Final Resul t [facility] [address] [place] [phone] from Last 3 Months Insurance * Guarantor: Brianna Chapman Account Type Relation to Patient Date of Phone Billing Address Personal/Family Self [address] ([id number]) [place] [phone] [facility] ([id number]) [place] [phone] Care Teams Urban And Regional Planner Relationship Specialty Start Date End Date Merlene Huntley PA-C [address] [place] [address] PCP - General Physician Paper Gluing Operator 04/08/21
--- OUTSIDE RECORDS SUMMARY | 2024-09-14 15:44 | XMS_ITS | Clinical Summary ---
Author Organization [facility] Address [address] [place] [address] Care Team Providers Care Boiler Repair Supervisor Name Role Phone Merlene Huntley PA-C Primary Care Provider [phone] Source Comments PLEASE NOTE, if this patient [...] Tablet by mouth Active blood pressure test kit-mediumIndicat ions:Essential hypertension DX: htn FROYLAN: 99 1 Kit 10/30/19 23 Active MISCELLANEOUS MEDICAL SUPPLY MISCIndications:C ontrolled type 2 diabetes mellitus without complication, with long-term current use of insulin ([facility]),Essenti al hypertension by miscellaneous route once daily as needed Use as needed to monitor weight DX: DM II, HTN FROYLAN:99 Supply: scale 1 Each 10/30/19 23 Active flash glucose scanning reader (Ineda SystemsSTYLE THEODORE 2 READER) [facility] Use to scan sensor to monitor blood sugar frequently (at least 4 times daily) 1 Each 04/08/20 23 Active blood sugar diagnostic (FREESTYLE PRECISION ANDRE STRIPS) stripsIndications :Type 2 diabetes mellitus with hyperglycemia, with long-term current use of insulin ([facility]) as needed for high blood sugar (Use with Theodore when prompted for hyperglycemia or hypoglycemia up to 2 times daily (FS Precision Andre Strips)) 50 Each 12/02/19 24 Active NOVOLOG FLEXPEN U-100 INSULIN 100 unit/mL (3 mL)Indications:Di abetic retinopathy of both eyes associated with type 2 diabetes mellitus, macular edema presence unspecified, unspecified retinopathy severity ([facility]) INJECT UNDER THE SKIN DIRECTED 2-14 UNITS THREE TIMES DAILY WITH MEALS; MAX 42U/DAY 15 mL 03/09/20 24 Active glucose 4 gram chewable tabletIndications :Type 2 diabetes mellitus with stage 3b chronic kidney disease, with long-term current use of insulin ([facility]) Place 4 Tablets into mouth, chew and swallow as needed for low blood sugar (Less than 70 mg/dL) 30 Tablet 03/16/20 24 Active flash glucose sensor (FREESTYLE THEODORE 2 SENSOR) kitIndications:Ty pe 2 diabetes mellitus with stage 3b chronic kidney disease, with long-term current use of insulin ([facility]) Combine applicator and sensor to apply to back of arm. Replace after 14 days. 2 Kit 03/16/20 24 Active insulin degludec (TRESIBA FLEXTOUCH U-100) 100 unit/mL (3 mL)Indications:Ty pe 2 diabetes mellitus with stage 3b chronic kidney disease, with long-term current use of insulin ([facility]) Inject 12 Units into the skin nightly at bedtime 15 mL 04/14/20 24 Active pen needle, diabetic (BD ULTRA-FINE SHORT PEN NEEDLE) 31 gauge x 10/28 ndleIndications:T ype 2 diabetes mellitus with stage 3b chronic kidney disease, with long-term current use of insulin ([facility]) Use to inject insulin up to 4 times daily. 200 Each 05/16/20 24 Active atorvastatin (LIPITOR) 40 mg tabletIndications :Type 2 diabetes mellitus with stage 3b chronic kidney disease, with long-term current use of insulin ([facility]),Essenti al hypertension,Hype rlipidemia with target low density lipoprotein (LDL) cholesterol less than 100 mg/dL Take 1 Tablet by mouth once daily 90 Tablet 1 06/03/20 24 Active calcium carbonate-vit D3-min 600 mg-10 mcg (400 unit) tabletIndications :Medication refill,Brittle nails Take 1 Tablet by mouth 2 (two) times daily 180 Tablet 1 06/03/20 24 Active losartan (COZAAR) 50 mg tablet Take 75 mg by mouth once daily (Prescribed by nephrology) 07/22/19 25 Active losartan (COZAAR) 100 mg tabletIndications :Type 2 diabetes mellitus with stage 3b chronic kidney disease, with long-term current use of insulin ([facility]),Essenti al hypertension Take 1 Tablet by mouth every morning For blood pressure. 90 Tablet 1 04/14/20 24 025 Discontin ued(Quant ity/Dosag e and/or Sig change) Active Problems Problem Noted Date Diagnosed Date [...] ovaries. Shoulder pain, right 03/20/2015 Overview (03/29/2015): [facility] Diagnostic Imaging Department [address] [place] [id number] Patient: FRANK CHAPMAN Julianne Cordoba./Age/Sex: 1945 - 69 - F Unit#: [id number] Location/Status: SPDIGEN/REG CLI Mnemonic/Ordering Site: [facility] Ordering [...] associa jeremie with type 2 diabetes mellitus ([facility]) 01/07/2013 Type 2 diabetes mellitus wit h stage 3b chronic kidney disease, with long-term current use of insulin ([facility]) 01/07/2013 Overview (08/18/2024): DM dx: >40years Glucometer: Freestyle Theodore 2 Current Diabetes RX: Tresiba U-100 - inject 12 units at bedtime Novolog Flexpen - inject 2-14 units three times daily before meals (max 42 units/day) Dapagliflozin - allergy list, counseled pt to consult nephrology regarding SLGT- 2 inhibitor use, nephro would like to wait for now ARABELLA-I/ARB: Losartan 50 mg daily - 1 & 1/2 tablet daily (prescribed by nephrology) Statin: Atorvastatin 40 mg daily Pneumococcal vaccine: Based on shared clinical decision-making, decide whether to administer one dose of PCV20 or PCV21 at least 5 years after the last pneumococcal vaccine dose. Regardless of wheter PCV20 or PCV21 is administered, their pneumococcal vaccinations are complete. Received: PCV13 (12/10/18) PPSV23 (01/16/16) Diabetes foot exam: 12/08/23 per Diabetes retinal exam: 09/23/23 at [facility] Bilateral pinguecula Nuclear sclerotic cataract. Pt does not drive and does not want cataract surgery . No diabetic retinopathy, no macular edema, no HTN retinopathy. Hyperopia. Astigmatism. Presbyopia F/U 1 year. Hyperlipidemia LDL goal <100 01/07/2013 H/O esophagitis 01/07/2013 S/P hysterectomy 01/07/2013 Fibroids 01/07/2013 Stage 3b chronic kidney disease ([facility]) 2012 Overview (08/18/2024): 07/07/24 at [facility] Blood pressure is above target but she reports 2 deaths in the family last week. She is on losartan. Increase losartan 75 mg daily She has a simple renal cyst and no further work up is indicated. She would benefit from SGTL2i. She did not tolerate Dapagliflozin previously. 01/04/24 at [facility] - Dr. Kuldeep Rey 1. Stage [...] SGTL2i but did not tolerate it previously. Pt seen Dr Lara on 03/20/2015 at [facility]. Impression: Stable CKD: Avoid nephrotoxins. Continue losartan 50 mg nightly. Blood work ordered. Emphasis on goo BP control and sugar control. Essential hypertension 01/07/2013 Goiter 09/12/2008 Acute renal failure ([facility] V24) 09/12/2008 10/29/2022 Resolved Problems Problem Noted Date Diagnosed Date Resolved Date Uses self-applied continuous glucose monitoring device 04/21/2023 03/16/2024 End stage renal disease ([facility]) 09/04/2020 03/16/2024 HTN (hypertension) 01/07/2013 Chronic kidney disease, stage 3 ([facility]) 01/07/2013 08/18/2024 Overview (08/18/2024): Encounters Date Type Department Care Team Description 08/18/2024 9:40 AM EST Office Visit [address] [address] Hammad Camarillo, PharmD Type 2 diabetes mellitus with stage 3b chronic kidney disease, with long-term current use of insulin ([facility]) (Primary Dx); Essential hypertension; Hyperlipidemia LDL goal <100; Stage 3b chronic kidney disease ([facility]) 08/09/2024 10:00 AM EST Office Visit [address] [phone] Mariela Lucas RN Type 2 diabetes mellitus with stage 3b chronic kidney disease, with long-term current use of insulin ([facility]) (Primary Dx) 06/30/2024 2:00 PM EST Office Visit [address] [address] Hammad Camarillo, SergoD Type 2 diabetes mellitus with stage 3b chronic kidney disease, with long-term current use of insulin ([facility]) (Primary Dx); Essential hypertension; Hyperlipidemia LDL goal <100; Stage 3b chronic kidney disease ([facility]) 06/30/2024 Travel from Last 3 Months Immunizations Immunization Administration Dates Next Due INFLUENZA, SEASONAL, INJECTABLE [...] Sign Reading Time Taken Comments Blood Pressure 128/60 08/18/2024 9:50 AM EST Pulse 61 08/18/2024 9:50 AM EST Temperature 36.6 ??C (97.9 ??F) 06/03/2024 9:54 AM ES T Respiratory Rate 16 08/18/2024 9:50 AM EST Oxygen Saturation 99% 08/18/2024 9:50 AM EST Inhaled Oxygen Concentration - - Weight 72.6 kg (160 lb) 08/18/2024 9:50 AM EST Height 157.5 cm (5' 2 ) 08/18/2024 9:50 AM EST Body Mass Index 29.26 08/18/2024 9:50 AM EST Plan of Treatment Upcoming Encounters Date Type Department Care Team (Late st Contact Info) Description 10/11/2024 10:10 AM EDT Interim Notes [facility] [address] [place] [phone] 10/11/2024 10:40 AM EDT Office Visit [facility] [address] [place] [address] Mariela Lucas RN [address] [place] [address] 10/11/2024 11:10 AM EDT Interim Notes [facility] [address] [place] [phone] 10/17/2024 1:50 PM EDT Interim Notes [facility] [address] [place] [phone] 10/17/2024 2:20 PM EDT Office Visit [facility] [place] [facility] [address] [place] [phone] Nemo Trevizo [address] [place] [address] 10/17/2024 3:00 PM EDT Interim Notes [facility] [address] [place] [phone] Health Maintenance Due Date Last Done Comments Ceg-FQUSD-62 ( season) 2024 Depression Annual Screen 06/15/2024 06/03/2024, 0 12/2023 Dental Prophy 06/19/2024 12/16/2023, 12/30/2021 Retinopathy Screening 09/22/2024 09/23/2023 , 09/17/2022, 09/13/2021, Additional history exists Diabetes Foot Exam 12/07/2024 12/08/2023, 0 12/08/2023, 04/04/2021, Additional history exists Falls Prevention 12/07/2024 12/08/2023, , 08/02/2019 Imm-Influenza (#1) 2024 04/25/2011, 04/25/2011 Postponed from 02/14/2024 (Patient postponement) Dental BW 12/17/2024 12/16/2023, 12/30/2021 Dental Examination 12/17/2024 12/16/2023, 12/30/2021 Dental Perio Charting 12/17/2024 12/16/2023, 022 Diabetes HbA1c 02/18/2025 08/18/2024, 07/2023, 12/08/2023, Additional history exists Lipid Screening 03/16/2025 03/16/2024, 0 12/2023, 05/04/2023, Additional history exists Tobacco Screening 03/16/2025 03/16/2024, 04/29/2023 Bone Density Screening 05/15/2025 05/15/2023, 2022 Medicare Annual Wellness Visit 06/03/2025 06/03/2024, 04/29/2023, 10/09/2021, Additional history exists Serum Creatinine 06/28/2025 06/28/2024, 07/2023, 12/24/2023, Additional history exists Urine Albumin Creatinine Ratio Screening 06/28/2025 06/28/2024, 03/16/2024, 12/24/2023, Additional history exists Imm-DTaP/Tdap/Td (2 - [...] Pressure < 130/80 Blood Pressure HTN (hypertension) 128/60(2024 9:50 AM EST) No Fany Hilton, Michael monitor bp 2 x daily using smbp device General Not on track( 024 1:18 PM PDT) Yes Renetta Sierra RN Hypertension: Decrease sodium intake General Improving(06/2023 10:03 AM PST) No Renetta Sierra RN HEMOGLOBIN A1C < 7.0 Result Component Type 2 diabetes mellitus with stage 3b chronic kidney disease, with long-term current use of insulin ([facility]) 7.8( 10:36 AM EST) No Fany Hilton, Michael Procedures Procedure Name Priority Date/Time Associated Diagnosis Comments HEMOGLOBIN GLYCOSYLATED A1C Routine 08/18/2024 10:36 AM EST Type 2 diabetes mellitus with stage 3b chronic kidney disease, with long-term current use of insulin ([facility]) GLUCOSE, BLOOD BY GLUCOSE MONITORING DEVICE (CLIA WAIVED)POCT Routine 08/18/2024 9:53 AM EST Type 2 diabetes mellitus with stage 3b chronic kidney disease, with long-term current use of insulin ([facility]) REFERRAL SCANNED DOCUMENT 08/10/2024 3:00 AM EST GLUCOSE, BLOOD BY GLUCOSE MONITORING DEVICE (CLIA WAIVED)POCT Routine 06/30/2024 2:13 PM EST Type 2 diabetes mellitus with stage 3b chronic kidney disease, with long-term current use of insulin ([facility]) MICROALBUMIN/CREATINI NE RATIO, URINE, RANDOM Routine 03/16/2024 3:20 PM EDT Type 2 diabetes mellitus with stage 3b chronic kidney disease, with long-term current use of insulin ([facility]) COMPREHENSIVE METABOLIC PANEL Routine 03/16/2024 2:56 PM EDT Type 2 diabetes mellitus with stage 3 chronic kidney disease, with long-term current use of insulin, unspecified whether stage 3a or 3b CKD ([facility]) Primary hypertension Hyperlipidemia with target low density lipoprotein (LDL) cholesterol less than 100 mg/dL LIPID PANEL Routine 03/16/2024 2:56 PM EDT Type 2 diabetes mellitus with stage 3 chronic kidney disease, with long-term current use of insulin, unspecified whether stage 3a or 3b CKD ([facility]) Primary hypertension Hyperlipidemia with target low density lipoprotein (LDL) cholesterol less than 100 mg/dL COMP PERIODONTAL EVALUATION - NEW/EST PATIENT Routine [...] Relevant to Health Maintenance Results * (ABNORMAL) HEMOGLOBIN GLYCOSYLATED A1C (08/18/2024 10:36 AM EST) HEMOGLOBIN A1C 7.8(H) <5.7 % of total Hgb [facility] Comment: For someone without known diabetes, a [...] for children. ?? Blood Blood / Unknown 08/18/2024 1 0:36 AM EST 08/18/2024 10:37 AM EST [place] PharmD LAB - BLOOD DRAW Final Re sult [facility] [address] [address], [facility] [address] [phone] * (ABNORMAL) GLUCOSE, BLOOD BY GLUCOSE MONITORING DEVICE (CLIA WAIVED)POCT (08/18/2024 9:53 AM EST) Only the most recent of2 resultswithin the time period is included. GLUCOSE 110(A) 70 - 100 mg/dL [facility] POCT Capillary Blood Blood / Unknown 9:53 AM EST us [employer] PharmD LAB - BLOOD DRAW Final Re sult [facility] POCT * REFERRAL SCANNED DOCUMENT (08/10/2024 3:00 AM EST) 08/10/2024 3:00 AM EST Merlene Huntley PA-C SCAN REFERRAL Final Result * MICROALBUMIN/CREATININE RATIO, URINE, RANDOM (03/16/2024 3:20 PM EDT) CREATININE, RANDOM URINE 103 20 - 275 mg/dL [facility] MICROALBUMIN 2.8 mg/dL [facility] [employer] [facility] Comment: Reference Range Not established MICROALBUMIN/CREA TININE RATIO, RANDOM URINE 27 <30 mg/g creat [facility] Comment: The ADA defines abnormalities in albumin [...] PM EDT 03/16/2024 3:21 PM EDT Hammad Camarillo PharmD LAB - NO BLOOD DRAW Final Result Performing Organization Address City/State/[facility] Co de Phone Number [employer] [address] [address], [facility] [address] [place] [phone] * (ABNORMAL) LIPID PANEL (03/16/2024 2:56 PM EDT) CHOLESTEROL, TOTAL 171 <200 mg/dL [facility] HDL CHOLESTEROL 48(L) > OR = 50 mg/dL [facility] TRIGLYCERIDES 74 <150 mg/dL [facility] LDL-CHOLESTEROL 107(H) 99 mg/dL (calc) [facility] Comment: Reference range: <100 Desirable range <100 mg/dL for primary prevention; ?? <70 mg/dL for patients with CHD or diabetic patients with > or = 2 CHD risk factors. LDL-C is now calculated using the Erlin calculation, which is a validated novel method providing better accuracy than the Friedewald equation in the estimation of LDL-C. Fransico ROBERT et al. LINA. 2013;310(19): 4621-5647 (http://education.InvierteMe,SL/faq/CZU504) CHOL/HDLC RATIO 3.6 <5.0 (calc) [facility] NON-HDL CHOLESTEROL 123 <130 mg/dL (calc) [facility] Comment: For patients with diabetes plus 1 major ASCVD risk factor, treating to a non-HDL-C goal of <100 mg/dL (LDL-C of <70 mg/dL) is considered a therapeutic option. Blood Blood / Unknown 03/16/2024 2 :56 PM EDT 03/16/2024 2:57 PM EDT Narrative [employer] [facility] - 03/17/2024 6:08 AM EDT FASTING:NO Merlene Huntley PA-C LAB - BLOOD DRAW Final Resul t [employer] [address] [address], [facility] [address] [phone] * (ABNORMAL) COMPREHENSIVE METABOLIC PANEL (03/16/2024 2:56 PM EDT) [facility] GLUCOSE 108 65 - 139 mg/dL [facility] Comment: ?Non-fasting reference interval UREA NITROGEN (BUN) 34(H) 7 - 25 mg/dL [facility] CREATININE (blood) 1.47(H) 0.60 - 1.00 mg/dL [facility] EGFR 37(L) > OR = 60 mL/min/1. 73m2 [facility] BUN/CREATININE RATIO 23(H) 6 - 22 (calc) [facility] SODIUM 136 135 - 146 mmol/L [facility] POTASSIUM 4.9 3.5 - 5.3 mmol/L [facility] CHLORIDE 102 98 - 110 mmol/L [facility] CARBON DIOXIDE 26 20 - 32 mmol/L [facility] CALCIUM 9.5 8.6 - 10.4 mg/dL [facility] PROTEIN, TOTAL 7.4 6.1 - 8.1 g/dL [facility] ALBUMIN 4.1 3.6 - 5.1 g/dL [facility] GLOBULIN 3.3 1.9 - 3.7 g/dL (calc) [facility] ALBUMIN/GLOBULI N RATIO 1.2 1.0 - 2.5 (calc) [facility] BILIRUBIN, TOTAL 0.4 0.2 - 1.2 mg/dL [facility] ALKALINE PHOSPHATASE 89 37 - 153 U/L [facility] AST 14 10 - 35 U/L [facility] ALT 7 6 - 29 U/L [facility] Blood Blood / Unknown 03/16/2024 2 :56 PM EDT 03/16/2024 2:57 PM EDT Narrative [facility] - 03/17/2024 6:08 AM EDT FASTING:NO Merlene Huntley PA-C LAB - BLOOD DRAW Edited Resu lt - Final [facility] [address] [address], [facility] [address] [address] * EYE EXAM (09/23/2023 3:00 AM EDT) 09/23/2023 3:00 AM EDT us Merlene Huntley PA-C OTHER Edited Resul t - Final * HISTORIC DEXA SCAN (05/15/2023 3:00 AM EST) 05/15/2023 3:00 AM EST us Merlene Huntley PA-C IMG DXA Edited Resul t - Final * HEPATITIS C ANTIBODY (07/03/2020 11:05 AM EST) HEPATITIS C VIRUS SCREEN NEGATIVE NEGATIVE [facility] Blood Blood / Unknown 07/03/2020 1 1:05 AM EST 07/03/2020 11:27 AM EST Narrative [facility] - 07/03/2020 2:07 PM EST [employer], a member of [address] [address] Adjunct Instructor [place] [id number] ORD# [id number] Merlene Huntley PA-C LAB - BLOOD DRAW Final Resul t [facility] [employer] [address], from Last 3 Months or Most Recently Relevant to Health Maintenance Insurance [facility] Member Subscriber Plan / Payer (Ef fective 2013-Present) Name:Frank Chapman Relation to Subscriber:Self Name:Frank Chapman Payer ID:[id number] Group ID:Not on file Type:Indemnity Address: [address] [place] [address] Care Teams Boiler Repair Supervisor Relationship Specialty Start Date End Date Merlene Huntley PA-C [address] [place] [address] PCP - General [facility], [place] 06/29/20
[2024-10-04 07:47] VITALS: BMI 31.4
[2024-10-04 07:57] VITALS: BP 160/56; PULSE 76; RESP 18; TEMP 36.7; O2SAT 99
--- NOTE | 2024-10-04 08:43 | P.OP_ITS ---
Operative Note Operative Note Date of Service: 10/04/24 Narrative: Operative Note Preop diagnosis: 1. Right thumb Trigger finger Postop diagnosis: Same Procedure: 1. Right thumb A1 renae release Surgeon: Laura Johns MD Side Door Worker: Braxton BALDERAS Anesthesia: local block using 1% lidocaine with epinephrine Findings: No locking or catching after A1 renae release EBL: Less than 5 mL Tourniquet time: None Specimens: None Complications: None Disposition: Brought to recovery room in stable condition Plan: Follow-up for 10-14 days for wound check and suture removal Indications: The patient is 79 years old, with a right thumb trigger finger that has been unresponsive to nonoperative management. The risks and benefits of operative treatment including but not limited to risk of damage to blood vessels, nerves, tendons, infection, persistent pain, persistent symptoms, recurrence or possible need for additional surgery were discussed with the patient and the patient wishes to proceed with surgery. Procedure: Once consent was obtained a local block was performed in the preop area using a combination of 1% lidocaine with epinephrine. The patient was then brought back to the operating suite and placed on the operative table in supine position. The right upper extremity was prepped and draped in a standard surgical fashion. Once assured that we had a good block, a 1.5 cm oblique incision was made centered over the A1 renae of the right thumb . The incision was made through the skin to the subcutaneous tissues using a #15 blade. Careful dissection was made down to the level of the A1 renae using tenotomy scissors, with care being taken to protect the nearby neurovascular structures. A longitudinal incision was made in the A1 renae 1st using a #15 blade, then using tenotomy scissors under direct visualization. The A1 renae was noted to be thickened. Following our A1 renae release, we no longer saw any locking or catching of the digit with flexion and extension. Once satisfied with our A1 renae release the wound was copiously irrigated with normal saline and hemostasis was obtained with a brief period of local pressure. The skin edges were reapproximated with some 5.0 nylon suture material and a sterile dressing was applied. The patient appears to have tolerated the procedure well and with no complications. All digits were well vascularized at the conclusion of the case.
--- NOTE | 2024-10-04 08:43 | MHC.SHP ---
Pre-Procedural Eval Section A - 24 Hr Update-Section A only Date of Service: 10/04/24 The patient is an INPATIENT: No Changes since office visit: No Cold of Flu in the past 2 weeks, No New Medical Problems, No Changes in Medication and No Patient answered all questions The patient has been examined within 24 hours of the surgical procedure. The History & Physical has been completed within 30 days and I have reviewed it.: Yes Section B - Complete if H&P > 30 days Chief Complaint: Trigger thumb, right thumb Allergies: Allergies Allergy/AdvReac Type Severity Reaction Status Date / Time losartan Allergy Intermediate Rash Verified 10/04/24 07:50 Plan Diagnosis/Plan: Unchanged I have reviewed the history and physical and performed a pertinent physical examination on my patient. No changes have occurred unless specified. Time Spent With Patient Time: Total time managing care of this patient today ____ minutes.
[2024-10-04 09:28] VITALS: PULSE 73; RESP 18; TEMP 36.4; O2SAT 98
== END 2024-10-04 09:30 | disposition home or self-care (01) ==
PROVIDERS: Visit Provider Orthopaedic Surgery
PROC: (CPT 26055; principal; 2024-10-04 09:30)
DX: M65.311 Trigger thumb, right thumb (principal); E11.9 Type 2 diabetes mellitus without complications; Z88.8 Allergy status to other drugs, medicaments and biological substances; Z56.0 Unemployment, unspecified
CPT/HCPCS: 26055; J0171; J2003

== ENCOUNTER → 2024-10-04 06:21 | Outpatient (BNV) | payer OTHER, SELFPAY | PROVIDERS: Visit Provider Orthopaedic Surgery | DX: M65.311 Trigger thumb, right thumb (principal) | CPT/HCPCS: 26055 ==

== ENCOUNTER 2024-10-19 12:54 | Outpatient (AMB) | payer OTHER, SELFPAY ==
--- NOTE | 2024-10-19 13:34 | A.OFFVIS_ITS ---
Vital Signs 10/19/24 13:37 Height 5 ft 2 in Weight 154 lb 8 oz BMI 28.3 Handedness Right Intake Visit Reasons: PO RT trigger thumb 10/04/24 AR Intake Note: Brianna is a 79 year old right hand dominant female who presents today for a post operative visit s/p Right thumb A1 renae release DOS: 10/04/[address] Laura Johns. Patient reports she is having tenderness at base of the thumb. She denies any discharge or pus from her incision on the right thumb. She still has swelling some swelling and flexion is currently not possible due to soreness. Sutures removed and steri strips applied. Allergies losartan Allergy (Intermediate, Verified 10/19/24 13:37) Rash HPI HPI PO RT trigger thumb 10/04/24 AR: Details: Brianna is a 79 year old right hand dominant female who presents today for a post operative visit s/p Right thumb A1 renae release DOS: 10/04/[address] Laura Johns. Patient reports she is having tenderness at base of the thumb. She denies any discharge or pus from her incision on the right thumb. She still has swelling some swelling and flexion is currently not possible due to soreness. Sutures removed and steri strips applied. FORMERLY [facility], 1928–1983 Medical History (Updated 10/19/24 @ 13:43 by CELINA Bernal) Trigger finger of right thumb GERD (gastroesophageal reflux disease) Hypercholesteremia Diabetes Hypertension Surgical History (Updated 10/04/24 @ 07:50 by Lisa Russell RN) Hx of colonoscopy Social History Are you a primary memory care program resident to a significant other at home: No Do you presently have visiting nurse or other home services: No Patient Tobacco Use Status: Never used Tobacco Current occupational status: unemployed and retired Current occupation: rt hand Review of Systems Const All systems reviewed & are unremarkable except as noted in HPI and below Physical Exam Vital Signs: BMI result Body Mass Index 28.3 Extrem Other: Patient is alert, oriented, and in no acute distress. Neuro: Normal sensation of the tips of all digits of the right hand at this time Vascular: Cap refill brisk Pain: Pain with passive range of motion of the IP joint of the right thumb No pain with other range of motion or to palpation of the right hand ROM: Patient was only able to minimally flex the IP joint of the right thumb actively Flexion and extension of all other joints of the right hand full and intact Skin: Well approximated and well healing incision site noted in the volar aspect and over the A1 renae of the right thumb No lacerations or abrasions. General: No ecchymosis, erythema, or evidence of infection. Psych: Appears grossly normal Affect normal Attitude cooperative Assessment & Plan Assessment & Plan (1) Trigger finger of right thumb: Code(s): M65.311 - Trigger thumb, right thumb Category: Medical Plan 1. Status post right trigger thumb release DOS 10/04/2024 Patient appears to be recovering well postoperatively Patient is educated about the typical recovery course At this time, due to the stiffness in the IP joint of the right thumb, patient was offered a referral to occupational therapy, but declines Patient states she will call in approximately 3-4 weeks if her range of motion has not improved for referral to OT, but she would prefer to work on this herself 1st Coding Level of Care Code Global (00108) Diagnoses Trigger finger of right thumb M65.311
[2024-10-19 13:37] VITALS: BMI 28.3
--- OUTSIDE RECORDS SUMMARY | 2024-10-19 14:01 | XMS_ITS | Encounter Summary ---
Author Organization [facility] Address [address] [place] [address] Care Team Providers Care Hall Coordinator Name Role Phone Merlene Huntley PA-C Primary Care Provider + [phone] Encounter Details Date Type Department Care Team (Late st Contact Info) Description 10/17/2024 3:00 PM EDT Interim Notes [facility] [address] [place] [phone] Social History Tobacco Use Types Packs/Day Years [...] AM PDT documented as of this encounter Plan of Treatment Upcoming Encounters Date Type Department Care Team (Late st Contact Info) Description 10/26/2024 9:20 AM EDT Telemedicine Visit [facility] [address] [place] [phone] Hammad Camarillo PharmD [address] [place] [phone] 04/19/2025 10:20 AM EST Office Visit [facility] Dental [address] [place] [phone] Santhosh Nemo [address] [place] [address] documented as of this encounter Goals Goal Patient Goal Type Associated Problems Recent Progress Patient-Stated? Author Blood Pressure < 130/80 Blood Pressure HTN (hypertension) 120/75(2024 3:27 PM EDT) No Fany Hilton, Michael monitor bp 2 x daily using smbp device General Not on track( 024 1:18 PM PDT) Yes Renetta Sierra RN Hypertension: Decrease sodium intake General Improving(06/2023 10:03 AM PST) No Renetta Sierra RN HEMOGLOBIN A1C < 7.0 Result Component Type 2 diabetes mellitus with stage 3b chronic kidney disease, with long-term current use of insulin ([facility]) 7.8( 10:36 AM EST) No Fany Hilton, Michael documented as of this encounter Visit Diagnoses Not on filedocumented in this encounter Additional Health Concerns Assessment Noted Time PHQ-9 Depression Total Score: 0 06/03/20 24 9:56 AM PST documented as of this encounter Care Teams Hall Coordinator Relationship Specialty Start Date End Date Merlene Huntley PA-C [address] [place] [phone] PCP - General FAMILY MEDICINE, SHERRIE 06/29/20 documented as of this encounter
--- OUTSIDE RECORDS SUMMARY | 2024-10-19 14:01 | XMS_ITS | Encounter Summary ---
Author Organization [facility] Address [address] [place] [address] Care Team Providers Care Weather Stripper Name Role Phone Merlene Huntley PA-C Primary Care Provider [phone] Reason for Visit * Reason Comments Dental Hygiene/ Preventive RECALL Encounter Details Date Type Department Care Team ([facility] st Contact Info) Description 10/17/2024 2:20 PM EDT Office Visit [facility] Dental [address] [place] [phone] Nemo Trevizo [address] [place] [address] Encounter for dental examination (Primary Dx) Social History Tobacco Use Types [...] Sign Reading Time Taken Comments Blood Pressure 120/75 10/17/2024 3:27 PM EDT Pulse 66 10/17/2024 3:27 PM EDT Temperature - - Respiratory Rate - - Oxygen Saturation - - Inhaled Oxygen Concentration - - Weight - - Height - - Body Mass Index - - documented in this encounter Progress Notes * Nemo Trevizo - 10/17/2024 3:27 PM EDT Prophy Subjective Brianna Chapman, 79 year old female, presents alone for iovox. Spout Worker: No Chief Complaint Patient presents with Dental Hygiene/ Preventive RECALL Objective RMHx: Yes Vitals: Vitals: 10/17/24 1527 BP: 120/75 Pulse: 66 BP Site: Left Arm BP Position: Sitting BP Cuff Size: Regular Adult Pain Score: 0 - No pain Assessment EOE/IOE/Oral Cancer Screen: WNL Oral Hygiene: Fair Home Care: Toothbrush 1 x per day, Floss 0 x per day Fluoride exposure: toothpaste Plaque: Generalized Slight Calculus: Generalized Slight Gingival Description: Erythematous Inflammation: Generalized Slight Recession: Generalized Slight Bone Loss: Generalized Slight Staining: None PSR: Yes Periodontal Screening Full Perio Charting completed: Yes Dx: Z01.20 Encounter for dental examination (primary encounter diagnosis) DH Dx Details: DR HEMPHILL Plan RECALL Informed Consent/PARQ (Procedure, Alternatives, Risks, Questions): Patient confirms informed consent using PARQ. Dental procedures in this visit D9450 - CASE PRESENTATION SUBS DTL & EXTENSIVE TX PLN (Completed) Service provider: Nemo Trevizo Billing provider: Lindsey Whitaker DDS TX993 - ORAL CANCER SCREENING (Completed) Service provider: Nemo Trevizo [place] provider: Lindsey Whitaker DDS D1330 - ORAL HYGIENE INSTRUCTIONS (Completed) Service provider: Nemo Trevizo [place] provider: Lindsey Whitaker DDS D1310 - NUTRITIONAL COUNSELING CONTROL OF DENTAL DISEASE (Completed) Service provider: Nemo Trevizo Billing provider: Lindsey Whitaker DDS D0603 - CARIES RISK ASSESSMENT & DOC FINDING HIGH RISK (Completed) Service provider: Nemo Trevizo Billing provider: Lindsey Whitaker DDS D0274 - BITEWINGS - FOUR RADIOGRAPHIC IMAGES (Completed) Service provider: Nemo Trevizo Billing provider: Lindsey Whitaker DDS D1110 - PROPHYLAXIS - ADULT (Completed) Service provider: Nemo Trevizo Billing provider: Lindsey Whitaker DDS D9993 - DENTAL CASE MANAGEMENT - MOTIVATIONAL INTV (Completed) Service provider: Nemo Trevizo Billing provider: Lindsey Whitaker DDS D0120 - PERIODIC ORAL EVALUATION ESTABLISHED PATIENT (Completed) Service provider: Nemo Trevizo Billing provider: JOSE ALEJANDRO Edwards completed with ultrasonic bulk materials handling plant operator OHI & Nutrition counseling provided, discussed: Gingivitis Post-Op Information Given: verbal Referral: No orders of the following type(s) were placed in this encounter: Referral. Rx: No orders of the defined types were placed in this encounter. Behavior: Excellent NV: Recall documented in this encounter Miscellaneous Notes * Patient Instructions - Nemo Trevizo - 10/17/2024 3:00 PM EDT If you are not able to keep your appointment please call 24-48 hours before your appointment to cancel or reschedule. documented in this encounter Plan of Treatment Upcoming Encounters Date Type Department Care Team (Late st Contact Info) Description 10/26/2024 9:20 AM EDT Telemedicine Visit [facility] [address] [place] [phone] Hammad Camarillo, PharmD [address] [place] [phone] 04/19/2025 10:20 AM EST Office Visit [facility] Dental [address] [place] [phone] Nemo Trevizo [address] [place] [phone] Scheduled Orders Name Type Priority Associated Diagnoses Order Schedule INTRAORAL - COMP SERIES OF RADIOGRAPHIC IMAGES Dental Procedures Routine 1 Occurren nora starting 10/17/2024 COMP PERIODONTAL EVALUATION - NEW/EST PATIENT Dental Procedures Routine 1 Occurrences starting 10/17/2024 PANORAMIC RADIOGRAPHIC IMAGE Dental Procedures Routine 1 Occurrenc es starting 10/17/2024 documented as of this encounter Goals Goal Patient Goal Type Associated Problems Recent Progress Patient-Stated? Author Blood Pressure < 130/80 Blood Pressure HTN (hypertension) 120/75(2024 3:27 PM EDT) No Fany Hilton, PharmD monitor bp 2 x daily using smbp device General Not on track( 024 1:18 PM PDT) Yes Renetta Sierra RN Hypertension: Decrease sodium intake General Improving(06/2023 10:03 AM PST) No Renetta Sierra RN HEMOGLOBIN A1C < 7.0 Result Component Type 2 diabetes mellitus with stage 3b chronic kidney disease, with long-term current use of insulin ([facility]) 7.8( 10:36 AM EST) No Fany Hilton, PharmD documented as of this encounter Procedures Procedure Name Priority Date/Time Associated Diagnosis Comments ORAL CANCER SCREENING Routine 10/17/2024 2:20 PM EDT Encounter for dental examination DENTAL CASE MANAGEMENT - MOTIVATIONAL INTV Routine 10/17/2024 2:20 PM EDT Encounter for dental examination CARIES RISK ASSESSMENT & DOC FINDING HIGH RISK Routine 10/17/2024 2:20 PM EDT Encounter for dental examination CASE PRESENTATION SUBS DTL & EXTENSIVE TX PLN Routine 10/17/2024 2:20 PM EDT Encounter for dental examination ORAL HYGIENE INSTRUCTIONS Routine 10/17/2024 2:20 PM EDT Encounter for dental examination NUTRITIONAL COUNSELING CONTROL OF DENTAL DISEASE Routine 10/17/2024 2:20 PM EDT Encounter for dental examination PROPHYLAXIS - ADULT Routine 10/17/2024 2 :20 PM EDT Encounter for dental examination BITEWINGS - FOUR RADIOGRAPHIC IMAGES Routine 10/17/2024 2:20 PM EDT Encounter for dental examination PERIODIC ORAL EVALUATION ESTABLISHED PATIENT Routine 10/17/2024 2:20 PM EDT Encounter for dental examination documented in this encounter Visit Diagnoses Diagnosis Encounter for dental examination- Primary Dental examination documented in this encounter Additional Health Concerns Assessment Noted Time PHQ-9 Depression Total Score: 0 06/03/20 24 9:56 AM PST documented as of this encounter Care Teams Weather Stripper Relationship Specialty Start Date End Date Merlene Huntley PA-C [address] [place] [address] PCP - General FAMILY MEDICINESHERRIE 06/29/20 documented as of this encounter
--- OUTSIDE RECORDS SUMMARY | 2024-10-19 14:01 | XMS_ITS | Clinical Summary ---
Author Organization [facility] Address [address] [place] [phone] Phone Care Team Providers Care Veterinary Technologist Name Role Phone Merlene Huntley PA-C Primary Care Provider [phone] Allergies Active Allergy Reactions Criticality Noted Date [...] guidelines. Shoulder pain 03/20/2015 09/04/2020 Overview (09/04/2020): [facility] Diagnostic Imaging Department [address] [place] [address] Patient: KAVITHABRIANNA /Age/Sex: 1945 - 69 - F Unit#: [id number] Location/Status: SPDIGEN/REG CLI Mnemonic/Ordering Site: [facility]OULD[facility]/SPDI Ordering [...] 01/07/2013 09/04/2020 Type 2 diabetes mellitus 01/07/2013 Immunizations Immunization Administration Dates Next Due Influenza TIV (IM) [...] Office Visit [facility] [address] [phone] Kuldeep Rey MD [address] [phone] Health Maintenance Due Date Last Done Comments Diabetes: Ophthalmology Exam 07/12/2020 Diabetes: Pedal Pulse Checked 07/12/2020 Diabetes: Sensory Foot Exam 07/12/2020 Diabetes: Visual Foot Exam 07/12/2020 Diabetes: Hemoglobin A1C 06/16/2024 024, 12/08/2023, 07/22/2023, Additional history exists Influenza Vaccine (Season Ended) 2025 04/25/2011 Pneumococcal Vaccine: 50+ Years Completed 12/10/2018, 01/16/2016 Pneumococcal Vaccine: Peds (0 to 5 Years) and At-Risk Patients (6 to 49 Years) Discontinued 12/10/2018, 01/16/2016 Hepatitis B Vaccine Aged Out No longe r eligible based on patient's age to complete this topic [facility] ([id number]) ([id number]) [place] PO[place] [phone] Care Teams Veterinary Technologist Relationship Specialty Start Date End Date Merlene Huntley PA-C [address] [place] [address] PCP - General Physician [employer] 04/08/21
--- OUTSIDE RECORDS SUMMARY | 2024-10-19 14:01 | XMS_ITS | Clinical Summary ---
Author Organization [facility] Address [address] [place] [address] Care Team Providers Care Retail Customer Service Specialist Name Role Phone Merlene Huntley PA-C Primary Care Provider [phone] Source Comments PLEASE NOTE, if this patient [...] complication, with long-term current use of insulin ([facility]),[facility] hypertension by miscellaneous route once daily as needed Use as needed to monitor weight DX: DM II, HTN FROYLAN:99 Supply: scale 1 Each 10/30/19 23 Active flash glucose scanning reader (BigDealSTYLE THEODORE 2 READER) [facility] [place] to scan sensor to monitor blood sugar frequently (at least 4 times daily) 1 Each 04/08/20 23 Active blood sugar diagnostic (FREESTYLE PRECISION ANDRE STRIPS) stripsIndications: Type 2 diabetes mellitus with hyperglycemia, with long-term current use of insulin ([facility]) as needed for high blood sugar (Use with Theodore when prompted for hyperglycemia or hypoglycemia up to 2 times daily (FS Precision Andre Strips)) 50 Each 12/02/19 24 Active NOVOLOG FLEXPEN U-100 INSULIN 100 unit/mL (3 mL)Indications: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, macular edema presence unspecified, unspecified retinopathy severity ([facility]) INJECT UNDER THE SKIN DIRECTED 2-14 UNITS THREE TIMES DAILY WITH MEALS; MAX 42U/DAY 15 mL 03/09/20 24 Active glucose 4 gram chewable tabletIndications: Type 2 diabetes mellitus with stage 3b chronic kidney disease, with long-term current use of insulin ([facility]) Place 4 Tablets into mouth, chew and swallow as needed for low blood sugar (Less than 70 mg/dL) 30 Tablet 03/16/20 24 Active flash glucose sensor (FREESTYLE THEODORE 2 SENSOR) kitIndications:Typ e 2 diabetes mellitus with stage 3b chronic kidney disease, with long-term current use of insulin ([facility]) Combine applicator and sensor to apply to back of arm. Replace after 14 days. 2 Kit 03/16/20 24 Active insulin degludec (TRESIBA FLEXTOUCH U-100) 100 unit/mL (3 mL)Indications:Typ e 2 diabetes mellitus with stage 3b chronic kidney disease, with long-term current use of insulin ([facility]) Inject 12 Units into the skin nightly at bedtime 15 mL 04/14/20 24 Active pen needle, diabetic (BD ULTRA-FINE SHORT PEN NEEDLE) 31 gauge x 10/28 ndleIndications:Ty pe 2 diabetes mellitus with stage 3b chronic kidney disease, with long-term current use of insulin ([facility]) Use to inject insulin up to 4 times daily. 200 Each 05/16/20 24 Active atorvastatin (LIPITOR) 40 mg tabletIndications: Type 2 diabetes mellitus with stage 3b chronic kidney disease, with long-term current use of insulin ([facility]),Essentia l hypertension,Hyper lipidemia with target low density [...] daily (Prescribed by nephrology) 07/22/19 25 Active Active Problems Problem Noted Date Diagnosed [...] ovaries. Shoulder pain, right 03/20/2015 Overview (03/29/2015): [facility] Diagnostic Imaging Department [address] [place] [id number] Patient: KAVITHAFRANK /Age/Sex: 1945 - 69 - F Unit#: [id number] Location/Status: SPDIGEN/REG CLI Mnem[facility] Physician: HILDA SIMPSON MD CR Shoulder [...] associa jeremie with type 2 diabetes mellitus ([facility]) 01/07/2013 Type 2 diabetes mellitus wit h stage 3b chronic kidney disease, with long-term current use of insulin ([facility]) 01/07/2013 Overview (08/18/2024): DM dx: >40years [...] 12/08/23 per Diabetes retinal exam: 09/23/23 at [facility] Bilateral pinguecula Nuclear sclerotic cataract. Pt does not drive and does not want cataract surgery . No diabetic retinopathy, no macular edema, no HTN retinopathy. Hyperopia. Astigmatism. Presbyopia F/U 1 year. Hyperlipidemia LDL goal <100 01/07/2013 H/O esophagitis 01/07/2013 S/P hysterectomy 01/07/2013 Fibroids 01/07/2013 Stage 3b chronic kidney disease ([facility]) 2012 Overview (08/18/2024): 07/07/24 at [facility] Blood pressure is above target but she reports 2 deaths in the family last week. She is on losartan. Increase losartan 75 mg daily She has a simple renal cyst and no further work up is indicated. She would benefit from SGTL2i. She did not tolerate Dapagliflozin previously. 01/04/24 at [facility] - Dr. Kuldeep Rey 1. Stage 3b [...] hypertension 01/07/2013 Goiter 09/12/2008 Acute renal failure ([facility] V24) 09/12/2008 10/29/2022 Resolved Problems Problem Noted Date Diagnosed Date Resolved Date Uses self-applied continuous glucose monitoring device 04/21/2023 03/16/2024 End stage renal disease ([facility]) 09/04/2020 03/16/2024 HTN (hypertension) 01/07/2013 Chronic kidney disease, stage 3 ([facility]) 01/07/2013 08/18/2024 Overview (08/18/2024): Encounters Date Type Department Care Team Description 10/17/2024 3:00 PM EDT Interim Notes [facility] Unit [address] [place] [phone] 10/17/2024 2:20 PM EDT Office Visit [facility] [address] [place] [phone] Nemo Trevizo Encounter for dental examination (Primary Dx) 10/11/2024 11:10 AM EDT Interim Notes [address] [phone] 10/11/2024 10:40 AM EDT Office Visit [address] [phone] Mariela Lucas RN Type 2 diabetes mellitus with stage 3b chronic kidney disease, with long-term current use of insulin ([facility]) (Primary Dx) 08/18/2024 9:40 AM EST Office Visit [address] [phone] Hammad Camarillo, PharmD Type 2 diabetes mellitus with stage 3b chronic kidney disease, with long-term current use of insulin ([facility]) (Primary Dx); Essential hypertension; Hyperlipidemia LDL goal <100; Stage 3b chronic kidney disease ([facility]) 08/09/2024 10:00 AM EST Office Visit [address] [phone] Mariela Lucas RN Type 2 diabetes mellitus with stage 3b chronic kidney disease, with long-term current use of insulin ([facility]) (Primary Dx) from Last 3 Months Immunizations Immunization Administration Dates Next Due INFLUENZA, SEASONAL, INJECTABLE 04/25/2011,04/25 PNEUMOCOCCAL CONJUGATE PCV 13 12/10/2018 PNEUMOCOCCAL POLYSACCHARIDE PPV23 (Pneumovax 23) 01/16/2016 TDAP 01/16/2016 ZOSTER VACCINE, RECOMBINANT (SHINGRIX) [...] Pulse 66 10/17/2024 3:27 PM EDT Temperature 36.6 ??C (97.9 ??F) 06/03/2024 9:54 AM ES T Respiratory Rate 16 08/18/2024 9:50 AM EST Oxygen Saturation 99% 08/18/2024 9:50 AM EST Inhaled Oxygen Concentration - - Weight 73.4 kg (161 lb 12.8 oz) 025 11:27 AM EDT Height 157.5 cm (5' 2 ) 08/18/2024 9:50 AM EST Body Mass Index 29.59 08/18/2024 9:50 AM EST Plan of Treatment Upcoming Encounters Date Type Department Care Team (Late st Contact Info) Description 10/26/2024 9:20 AM EDT Telemedicine Visit [address] [phone] Hammad Camarillo, PharmD [address] [place] [address] 04/19/2025 10:20 AM EST Office Visit [facility] [address] [place] [phone] Nemo Trevizo [address] [place] [address] Health Maintenance Due Date Last Done Comments [id number] (2023- season) 2024 Depression Annual Screen 06/15/2024 06/03/2024, 02/0 12/2023 Retinopathy Screening 09/22/2024 09/23/2023 , 09/17/2022, 09/13/2021, Additional history exists Diabetes Foot Exam 12/07/2024 12/08/2023, 0 12/08/2023, 04/04/2021, Additional history exists Falls Prevention 12/07/2024 12/08/2023, , 08/02/2019 Imm-Influenza (#1) 2024 04/25/2011, 04/25/2011 Postponed from 02/14/2024 (Patient postponement) Dental Perio Charting 12/17/2024 12/16/2023, 022 Diabetes HbA1c 02/18/2025 08/18/2024, 1007/2023, 12/08/2023, Additional history exists Lipid Screening 03/16/2025 03/16/2024, 020 12/2023, 05/04/2023, Additional history exists Tobacco Screening 03/16/2025 03/16/2024, 04/29/2023 Dental Prophy 04/21/2025 10/17/2024, 070 08/2023, 12/30/2021 Bone Density Screening 05/15/2025 05/15/2023, 2022 Medicare Annual Wellness Visit 06/03/2025 06/03/2024, 04/29/2023, 10/09/2021, Additional history exists Serum Creatinine 06/28/2025 06/28/2024, 07/2023, 12/24/2023, Additional history exists Urine Albumin Creatinine Ratio Screening 06/28/2025 06/28/2024, 03/16/2024, 12/24/2023, Additional history exists Dental BW 10/19/2025 10/17/2024, 07/0 08/2023, 12/30/2021 Dental Examination 10/19/2025 10/17/2024, 0 12/16/2023, 12/30/2021 Imm-DTaP/Tdap/Td (2 - Td or Tdap) 01/15/2026 [...] 120/75(2024 3:27 PM EDT) No Fany Hilton, SergoD monitor bp 2 x daily using smbp device General Not on track( 024 1:18 PM PDT) Yes Renetta Sierra RN Hypertension: Decrease sodium intake General Improving(06/2023 10:03 AM PST) No Renetta Sierra, KEDAR HEMOGLOBIN A1C < 7.0 Result Component Type 2 diabetes mellitus with stage 3b chronic kidney disease, with long-term current use of insulin ([facility]) 7.8( 10:36 AM EST) No Fany Hilton, Michael Procedures Procedure Name Priority Date/Time Associated Diagnosis Comments PERIODIC ORAL EVALUATION ESTABLISHED PATIENT Routine 10/17/2024 [...] PM EDT Encounter for dental examination ORAL CANCER SCREENING Routine 10/17/2024 2:20 PM EDT Encounter for dental examination CASE PRESENTATION SUBS DTL & EXTENSIVE TX PLN Routine 10/17/2024 2:20 PM EDT Encounter for dental examination HEMOGLOBIN GLYCOSYLATED A1C Routine 08/18/2024 10:36 AM EST Type 2 diabetes mellitus with stage 3b chronic kidney disease, with long-term current use of insulin ([facility]) GLUCOSE, BLOOD BY GLUCOSE MONITORING DEVICE (CLIA WAIVED)POCT Routine 08/18/2024 9:53 AM EST Type 2 diabetes mellitus with stage 3b chronic kidney disease, with long-term current use of insulin ([facility]) REFERRAL SCANNED DOCUMENT 08/10/2024 3:00 AM EST MICROALBUMIN/CREATINI NE RATIO, URINE, RANDOM Routine 03/16/2024 3:20 PM EDT Type 2 diabetes mellitus with stage 3b chronic kidney disease, with long-term current use of insulin ([facility]) COMPREHENSIVE METABOLIC PANEL Routine 03/16/2024 2:56 PM EDT Type 2 diabetes mellitus with stage 3 chronic kidney disease, with long-term current use of insulin, unspecified whether stage 3a or 3b CKD ([facility]) Primary hypertension Hyperlipidemia with target low density lipoprotein (LDL) cholesterol less than 100 mg/dL LIPID PANEL Routine 03/16/2024 2:56 PM EDT Type 2 diabetes mellitus with stage 3 chronic kidney disease, with long-term current use of insulin, unspecified whether stage 3a or 3b CKD ([facility]) Primary hypertension Hyperlipidemia with target low density lipoprotein (LDL) cholesterol less than 100 mg/dL COMP PERIODONTAL EVALUATION - NEW/EST PATIENT Routine 12/16/2023 1:40 PM EDT Encounter for dental examination EYE EXAM 09/23/2023 3:00 AM EDT HISTORIC DEXA SCAN 05/15/2023 3 :00 AM EST INTRAORAL - COMP SERIES OF RADIOGRAPHIC IMAGES Routine 12/30/2021 9:00 AM EDT Dental caries noted on examination HEPATITIS C ANTIBODY Routine 07/03/2020 11:05 AM EST Need for hepatitis C screening test from Last 3 Months or Most Recently Relevant to Health Maintenance Results * (ABNORMAL) HEMOGLOBIN GLYCOSYLATED A1C (08/18/2024 10:36 AM EST) HEMOGLOBIN A1C 7.8(H) <5.7 % of total Hgb [facility] [facility] Comment: For someone without known diabetes, a [...] 0:36 AM EST 08/18/2024 10:37 AM EST [employer] PharmD LAB - BLOOD DRAW Final Re sult Performing Organization Address City/[facility]/ZIP Co de Phone Number [facility] [address] [address], [employer] [address] [address] * (ABNORMAL) GLUCOSE, BLOOD BY GLUCOSE MONITORING DEVICE (CLIA WAIVED)POCT (08/18/2024 9:53 AM EST) GLUCOSE 110(A) 70 - 100 mg/dL [facility] POCT Capillary Blood Blood / Unknown 9:53 AM EST us Hammad Marquise PharmD LAB - BLOOD DRAW Final Re sult [facility] POCT * REFERRAL SCANNED DOCUMENT (08/10/2024 3:00 AM EST) 08/10/2024 3:00 AM EST Merlene Huntley PA-C SCAN REFERRAL Final Result * MICROALBUMIN/CREATININE RATIO, URINE, RANDOM (03/16/2024 3:20 PM EDT) CREATININE, RANDOM URINE 103 20 - 275 mg/dL [employer] MICROALBUMIN 2.8 mg/dL [facility] [employer] Comment: Reference Range Not established MICROALBUMIN/CREA TININE RATIO, RANDOM URINE 27 <30 mg/g creat [employer] Comment: The ADA defines abnormalities in albumin [...] BLOOD DRAW Final Result Performing Organization Address City/State/[facility] Co de Phone Number [employer] [address] [place] [address], [employer] [address] [place] [phone] * (ABNORMAL) LIPID PANEL (03/16/2024 2:56 PM EDT) CHOLESTEROL, TOTAL 171 <200 mg/dL [employer] HDL CHOLESTEROL 48(L) > OR = 50 mg/dL [employer] TRIGLYCERIDES 74 <150 mg/dL [employer] LDL-CHOLESTEROL 107(H) 99 mg/dL (calc) [employer] Comment: Reference range: <100 Desirable range <100 mg/dL for primary prevention; ?? <70 mg/dL for patients with CHD or diabetic patients with > or = 2 CHD risk factors. LDL-C is now calculated using the Fransico-Daomn calculation, which is a validated novel method providing better accuracy than the Friedewald equation in the estimation of LDL-C. Fransico SS et al. LINA. 2013;310(19): 5181-5561 (http://education.[employer]/faq/AQK331) CHOL/HDLC RATIO 3.6 <5.0 (calc) [employer] NON-HDL CHOLESTEROL 123 <130 mg/dL (calc) [employer] Comment: For patients with diabetes plus 1 major ASCVD risk factor, treating to a non-HDL-C goal of <100 mg/dL (LDL-C of <70 mg/dL) is considered a therapeutic option. Blood Blood / Unknown 03/16/2024 2 :56 PM EDT 03/16/2024 2:57 PM EDT Narrative [employer] [facility] - 03/17/2024 6:08 AM EDT FASTING:NO Merlene Huntley PA-C LAB - BLOOD DRAW Final Resul t [employer] [address] [address], [employer] [address] [address] * (ABNORMAL) COMPREHENSIVE METABOLIC PANEL (03/16/2024 2:56 PM EDT) GLUCOSE 108 65 - 139 mg/dL [employer] [facility] Comment: ?Non-fasting reference interval UREA NITROGEN (BUN) 34(H) 7 - 25 mg/dL [employer] [facility] CREATININE (blood) 1.47(H) 0.60 - 1.00 mg/dL [employer] [facility] EGFR 37(L) > OR = 60 mL/min/1. 73m2 [employer] [facility] BUN/CREATININE RATIO 23(H) 6 - 22 (calc) [employer] [facility] SODIUM 136 135 - 146 mmol/L [employer] POTASSIUM 4.9 3.5 - 5.3 mmol/L [employer] CHLORIDE 102 98 - 110 mmol/L [employer] [facility] CARBON DIOXIDE 26 20 - 32 mmol/L [employer] CALCIUM 9.5 8.6 - 10.4 mg/dL [employer] PROTEIN, TOTAL 7.4 6.1 - 8.1 g/dL [employer] [facility] ALBUMIN 4.1 3.6 - 5.1 g/dL [employer] [facility] GLOBULIN 3.3 1.9 - 3.7 g/dL (calc) [employer] [facility] ALBUMIN/GLOBULI N RATIO 1.2 1.0 - 2.5 (calc) [employer] [facility] BILIRUBIN, TOTAL 0.4 0.2 - 1.2 mg/dL [employer] [facility] ALKALINE PHOSPHATASE 89 37 - 153 U/L [employer] [facility] AST 14 10 - 35 U/L [employer] [facility] ALT 7 6 - 29 U/L [employer] [facility] Blood Blood / Unknown 03/16/2024 2 :56 PM EDT 03/16/2024 2:57 PM EDT Narrative [employer] [facility] - 03/17/2024 6:08 AM EDT FASTING:NO us Merlene Huntley PA-C LAB - BLOOD DRAW Edited Resu lt - Final [employer] [address] [address], [employer] [address] [address] * EYE EXAM (09/23/2023 3:00 AM EDT) 09/23/2023 3:00 AM EDT us Merlene Huntley PA-C OTHER Edited Resul t - Final * HISTORIC DEXA SCAN (05/15/2023 3:00 AM EST) 05/15/2023 3:00 AM EST us Merlene Huntley PA-C IMG DXA Edited Resul t - Final * HEPATITIS C ANTIBODY (07/03/2020 11:05 AM EST) HEPATITIS C VIRUS SCREEN NEGATIVE NEGATIVE [facility] Blood Blood / Unknown 07/03/2020 1 1:05 AM EST 07/03/2020 11:27 AM EST Narrative [facility] - 07/03/2020 2:07 PM EST [employer], a member of [address] [address] Director Institution [place] [id number] ORD# [id number] Merlene Huntley PA-C LAB - BLOOD DRAW Final Resul t [employer]-[address] [address], from Last 3 Months or Most Recently Relevant to Health Maintenance Insurance [facility] Member Subscriber Plan / Payer (Ef fective 2019-Present) Name:Frank Chapman Relation to Subscriber:Self Name:Maddie Chapmanjoy Whitaker Payer ID:[id number] Group ID:Not on file Type:Medicare Address: [address] [employer] Member Subscriber Plan / Payer (Ef fective 2013-Present) Name:Frank Chapman Relation to Subscriber:Self Name:Maddie Chapmanjoy Julianne Payer ID:[id number] Group ID:Not on file Type:Indemnity Address: [address] [place] [address] Care Teams Retail Customer Service Specialist Relationship Specialty Start Date End Date Merlene Huntley PA-C [address] [place] [address] PCP - General FAMILY MEDICINESHERRIE 06/29/20
--- OUTSIDE RECORDS SUMMARY | 2024-10-19 14:02 | XMS_ITS ---
Author Organization [facility] Address [address] [place] [address] Care Team Providers Care Hat Renovator Name Role Phone Merlene Huntley PA-C Primary Care Provider [id number] Program Status:Enrolled (Active) Start date:01/01/2023 Enrollment date:01/01/2023 Case Team Name Relationship Phone Renetta Sierra RN (Responsible Staff) [phone] Continued Care and Services Coordination
== END 2024-10-19 13:59 | disposition home or self-care (01) ==
LOC: HO.HOS 12:54
PROVIDERS: PCP Physician Assistant Medical; Visit Provider Orthopaedic Surgery
DX: M65.311 Trigger thumb, right thumb (principal)
CPT/HCPCS: 99024

== ENCOUNTER → 2024-10-19 12:54 | Outpatient (BNVA) | payer OTHER, SELFPAY | PROVIDERS: PCP Physician Assistant Medical; Visit Provider Orthopaedic Surgery | DX: M79.644 Pain in right finger(s) (principal); Z47.89 Encounter for other orthopedic aftercare; Z98.890 Other specified postprocedural states | CPT/HCPCS: 99212 ==